=== PATIENT | female | born 1960 | race Hispanic/Latino ===

== ENCOUNTER → 2017-11-01 | Outpatient (CLI) | payer OTHER | LOC: RAH 13:22 | PROVIDERS: ATTEND Internal Medicine | DX: R10.811 Right upper quadrant abdominal tenderness (principal) | CPT/HCPCS: 76700 ==

== ENCOUNTER → 2023-11-09 | Outpatient (CLI) | payer OTHER | END | disposition home or self-care (01) | LOC: RAH 11:16 | PROVIDERS: ATTEND Internal Medicine | DX: M47.22 Other spondylosis with radiculopathy, cervical region (principal); K80.50 Calculus of bile duct without cholangitis or cholecystitis without obstruction; M41.84 Other forms of scoliosis, thoracic region; M47.814 Spondylosis without myelopathy or radiculopathy, thoracic region | CPT/HCPCS: 72040; 72070 ==

== ENCOUNTER 2024-01-05 06:58 | Day surgery (SDC) | payer OTHER ==
[~2024-01-05] VITALS: Ht 144.8 cm; Wt 43.1 kg
[2024-01-05] VITALS (19 sets, daily range): BP systolic 114–194; BP diastolic 68–94; PULSE 65–81; RESP 13–19
[2024-01-05] MEDS: 0.9%NACL 1000ML 1,000 ML IV ONE (06:18)
[2024-01-05] MEDS ORDERED: HYDR12.54 PO (07:59)
[2024-01-05] MEDS ORDERED: FAMO20TA8 PO (07:59)
[2024-01-05] MEDS ORDERED: CETI10TA57 PO (07:59)
[2024-01-05] MEDS ORDERED: METF-444 PO (07:59)
[2024-01-05] MEDS ORDERED: LISI40TA9 PO (07:59)
[2024-01-05] MEDS ORDERED: TOUJEO SQ (07:59)
[2024-01-05] MEDS ORDERED: ESTR0.5T2 PO (07:59)
[2024-01-05] MEDS ORDERED: ROSU20TA73 PO (07:59)
[2024-01-05] MEDS ORDERED: VITAMIN D PO (07:59)
[2024-01-05] MEDS ORDERED: PROPOFOL 10 MG/ML 20ML VIAL IV ONE (08:52)
[2024-01-05] MEDS ORDERED: HYDRALAZINE 20MG/ML VIAL ONE (10:22)
== END 2024-01-05 11:10 | disposition home or self-care (01) ==
LOC: ENDO 06:58 → DAH 06:58 → ENDO 11:10
PROVIDERS: ATTEND Internal Medicine Gastroenterology
DX: R10.13 Epigastric pain (principal); R14.0 Abdominal distension (gaseous); K29.50 Unspecified chronic gastritis without bleeding; K31.84 Gastroparesis; K59.04 Chronic idiopathic constipation; E11.43 Type 2 diabetes mellitus with diabetic autonomic (poly)neuropathy; I10 Essential (primary) hypertension; E78.5 Hyperlipidemia, unspecified; Z79.899 Other long term (current) drug therapy; Z86.010 Personal history of colon polyps; Z79.84 Long term (current) use of oral hypoglycemic drugs
CPT/HCPCS: 82948 ×3; 43239; J7030 ×2; J0360; J2704; A4620; A4215 ×2; A4223; A7002; A4222; A4221; A4663; A4606; J3490

== ENCOUNTER → 2024-01-13 | Outpatient (CLI) | payer OTHER ==
[~2024-01-13] MED LIST: CETI10TA57 PO; ESTR0.5T2 PO; FAMO20TA8 PO; HYDR12.54 PO; LISI40TA9 PO; METF-444 PO; ROSU20TA73 PO; TOUJEO SQ; VITAMIN D PO
== END | disposition home or self-care (01) ==
LOC: RAH 07:15
PROVIDERS: ATTEND Internal Medicine Gastroenterology
DX: K31.84 Gastroparesis (principal)
CPT/HCPCS: 78264; A9541

== ENCOUNTER 2025-06-11 08:35 | Inpatient (IN) | payer OTHER ==
[~2025-06-11] VITALS: Ht 147.3 cm; Wt 45.4 kg
[~2025-06-11 08:35] MED LIST changes: +LISI40TA15 PO; -LISI40TA9 PO; -ROSU20TA73 PO; +ROSU20TA98 PO
--- NOTE | 2025-06-11 08:41 | ERN ---
General Chief Complaint: Other Problems Stated Complaint: PNEUMONIA Time Seen by MD: 08:37 History of Present Illness Initial Comments 64-year-old female presents for cough and kidney dysfunction. Patient has a history of diabetes. About five days ago she developed cough. She went to [facility] and was diagnosed with a pneumonia. She was receiving antibiotics. She was told that her kidneys are not functioning appropriately, and that she may need dialysis. She left [facility] this morning and came straight here because [facility] is not in her insurance network. PCP is Dr. Nicole. She denies any fevers, urinary symptoms, or pains. She reports feeling weak and having a cough. Allergies: Coded Allergies: No Known Drug Allergies (Unverified Allergy, Unknown, 01/05/24) Home Meds Reported Medications [Toujeo ] No Conflict Check, 30 UNITS SQ AM 01/05/24 Estradiol (Estradiol) 0.5 Mg Tablet, 0.5 MG PO AM, TAB 01/05/24 Famotidine (Famotidine) 20 Mg Tablet, 20 MG PO BID, TAB 01/05/24 Rosuvastatin Calcium (Rosuvastatin Calcium) 20 Mg Tablet, 20 MG PO AM, TAB 01/05/24 Hydrochlorothiazide (Hydrochlorothiazide) 12.5 Mg Tablet, 12.5 MG PO AM, TAB 01/05/24 [Vitamin D] No Conflict Check, 33710 UNIT PO QWEEK 01/05/24 Lisinopril (Lisinopril) 40 Mg Tablet, 40 MG PO AM, TAB 01/05/24 Metformin HCl (Metformin HCl) 500 Mg Tablet, 500 MG PO BID, TAB 01/05/24 Cetirizine HCl (Cetirizine HCl) 10 Mg Tablet, 10 MG PO HS, TAB 01/05/24 ROS Dictation CONSTITUTIONAL: No chills, no fever, no weakness, no diaphoresis, no malaise. HEAD/FACE: No signs of trauma. EENT: No eye pain, no blurred vision, no tearing, no double vision, no ear pain, no ear discharge, no nose pain, no nasal congestion, no throat pain, no throat swelling, no mouth pain. RESPIRATORY: Cough and congestion CARDIOVASCULAR: No chest pain, no edema, no palpitations, no syncope. GASTROINTESTINAL/ABDOMINAL: No abdominal pain, no constipation, no diarrhea, no nausea, no vomiting. GENITOURINARY: No abnormal discharge, no dysuria, no frequent urination, no hematuria. No complaints of pain in the genitals. MUSCULOSKELETAL: No back pain, no gout, no joint pain, no joint swelling, no muscle pain, no muscle stiffness, no neck pain. INTEGUMENTARY: No change in color, no change in hair/nails, no dryness, no lesion, no lumps, no rash. NEUROLOGICAL/PSYCH: No anxiety, not depressed, no emotional problem, no headache, no numbness, no pre-existing deficit, no history of seizures, no tremors, no weakness. HEMATOLOGIC/LYMPHATIC: Not anemic, no history of blood clots, no apparent bleeding, no bruising, glands not swollen. All Systems Negative, Except as Noted. Physical Exam Physical Exam Dictation VITAL SIGNS: Reviewed. GENERAL APPEARANCE: Alert, oriented x3, no acute distress. HEAD AND FACE: Non-traumatic. EYES: PERRL, pink conjunctivas, eyelid no trauma, anterior chamber clear. EARS: Pinnas intact and no signs of trauma or erythema. Ear canals clear and no discharge. TMs no erythema. NOSE: No discharge, no bleeding. OROPHARYNX: Mouth normal, teeth no caries, tongue pink. Pharynx clear, no erythema. Tonsils no exudates, no abscesses noted. Mucous membrane moist. NECK: Supple, non-tender, no thyromegaly, no masses, no JVD, no bruits. BREAST: Deferred. CHEST: No tenderness, no crepitus, no paradoxical movement, no retractions. LUNGS: Clear, well-ventilated, symmetric, no rales, no wheezing, no rhonchi, no stridor, good breath sounds bilaterally. HEART: Regular rate, regular rhythm, no murmur, no gallops. VASCULAR: No peripheral edema. ABDOMEN: Soft, positive bowel sounds, nondistended, no guarding, nontender, no rebound, no masses no hepatomegaly, no splenomegaly, no Parson's sign, no hernias. RECTAL: Deferred. GENITAL: Deferred. NEUROLOGICAL: Normal speech, gross motor function intact, gross sensory function intact. MUSCULOSKELETAL: Neck nontender, full range of motion, back nontender, full range of motion. EXTREMITIES: Nontender, full range of motion. SKIN: Color pink, dry, no turgor, no rash, no lacerations, no abrasions, no contusions. LYMPHATICS: Deferred. Results Laboratory and Microbiology Lab and Micro Result Laboratory Tests Test 06/11/25 08:48 White Blood Count 9.9 K/uL (4.8-10.8) Red Blood Count 3.13 MIL/uL (4.00-5.50) L Hemoglobin 8.3 g/dL (12.0-16.0) L Hematocrit 25.6 % (36-48) L Mean Corpuscular Volume 81.8 fL (79-99) Mean Corpuscular Hemoglobin 26.5 pg (27.0-33.0) L Mean Corpuscular Hemoglobin Concent 32.4 g/dL (32.0-36.0) Red Cell Distribution Width 16.1 % (11.0-15.5) H Platelet Count 471 K/uL (130-400) H Mean Platelet Volume 10.4 fL (7.5-10.5) Immature Granulocyte % (Auto) 0.5 % (0-1) Neutrophils (%) (Auto) 78.3 % (40.0-77.0) H Lymphocytes (%) (Auto) 13.6 % (21.0-51.0) L Monocytes (%) (Auto) 4.2 % (3.0-13.0) Eosinophils (%) (Auto) 2.9 % (0.0-8.0) Basophils (%) (Auto) 0.5 % (0.0-5.0) Neutrophils # (Auto) 7.8 K/uL (1.8-7.7) H Lymphocytes # (Auto) 1.4 K/uL (1.0-4.8) Monocytes # (Auto) 0.4 K/uL (0.1-1.0) Eosinophils # (Auto) 0.29 K/uL (0.00-0.70) Basophils # (Auto) 0.05 K/uL (0.00-0.20) Absolute Immature Granulocyte (auto 0.05 K/uL (0-1) Nucleated Red Blood Cells 0.0 % (0.0-0.19) Sodium Level 135 mmol/L (136-145) L Potassium Level 4.9 mmol/L (3.5-5.1) Chloride Level 99 mmol/L (101-111) L Carbon Dioxide Level 16 mmol/L (21-32) L Blood Urea Nitrogen 100 mg/dL (7-18) *H Creatinine 15.6 mg/dL (0.5-1.0) *H Glomerular Filtration Rate Calc 2 mL/min (>90) Random Glucose 215 mg/dL (70-105) H Lactic Acid Level 1.0 mmol/L (0.8-2.5) Total Calcium 7.6 mg/dL (8.5-10.1) L Total Creatine Kinase 244 U/L (21-232) #H Troponin I High Sensitivity 152.9 ng/L (4-50) *H Procalcitonin 0.29 ng/mL (0.05-0.5) MDM CC: pneumonia, cough, kidney disease Historian: Patient Comorbidities: Hypertension, recent admission Limitations by social determinants of health: None Differential diagnosis: Kidney disease, pneumonia, DAI, electrolyte abnormality, arrhythmia, other Vital signs: Stable, remained stable in the ER EKG: Sinus tachycardia, rate 101, normal axis, good R-wave progression. No ST wave changes noted. No arrhythmia. Independently interpreted by me. Labs show no leukocytosis. Normocytic anemia hemoglobin of 8.3 platelets stable. Chemistry shows carbon dioxide of 16 BUN of 100 creatinine of 15.6. On external chart review patient has not had labs in about 10 years and this appears to be new. Lactic acid is stable. The troponin is elevated 152, likely NSTEMI not related to ACS likely due to the kidney disease. Case discussed with the hospitalist Dr. Sung to admit the patient for nephrology consultation. Patient agrees. ED Course Orders Procedure Category Date Status Time Cardiac Panel LAB 06/11/25 Complete 08:38 Cbc With Differential LAB 06/11/25 Complete 08:38 Basic Metabolic Panel LAB 06/11/25 Complete 08:38 Urinalysis Profile LAB 06/11/25 Logged 08:38 Chest 1vw RAD 06/11/25 Taken 08:38 Lactic Acid LAB 06/11/25 Complete 08:38 Procalcitonin LAB 06/11/25 Complete 08:38 12 Lead Ekg Tracing- EKG 06/11/25 Logged Technical 08:38 Admit Orders ADM 06/11/25 Transmitted 10:03 Renal Nondialysis Diet DIET 06/11/25 Transmitted Lunch Blood Sugars Achs CPOE 06/11/25 Transmitted 10:03 Ceftriaxone 1g Vial PHA 06/11/25 In Process (Rocephine 1g Inj) 10:30 *Nursing CPOE 06/11/25 Transmitted Communication: 10:03 Nephrology Consult CONPHYSVC 06/11/25 Transmitted 10:03 Initiate MELISSA 06/11/25 In Process Hyperglycemia Protoco 10:03 Insulin Lispro 100 PHA 06/11/25 In Process Unit/Ml 3ml (Humalog 11:30 Current Medications Medications (Trade) Dose Ordered Sig/Amy Route PRN Reason Start Time Stop Time Status Last Admin Dose Admin Ceftriaxone Sodium (ROCEphine 1G INJ) 1 gm Q24H IVPB 06/11/25 10:30 06/21/25 10:29 Insulin Human Lispro (HumaLOG LISpro 100 UNIT/ML 3ML) INSULIN SLIDING SCAL... ACHS SQ 06/11/25 11:30 07/11/25 11:29 Vital Signs Date Time Temp Pulse Resp B/P (MAP) Pulse Ox O2 Delivery O2 Flow Rate FiO2 06/11/25 08:37 97.9 98 16 138/75 97 Room Air 0 DX & DISP Disposition: Inpatient (Dr Sung) Departure Impression: Primary Impression: Acute renal failure Additional Impressions: Normocytic anemia, Community acquired pneumonia Condition: Stable Referrals: KANIKA SUNG MD (PCP) ESTHELA AMADOR DO Jun 11, 2025 08:41
[2025-06-11 08:55] LABS: IMMATURE GRANULOCYTE ABSOLUTE 0.05 K/uL (0-1); NUCLEATED RED BLOOD CELLS 0.0 % (0.0-0.19); PLATELET COUNT (AUTO) 471 K/uL (130-400); RED BLOOD CELL COUNT(AUTO) 3.13 MIL/uL (4.00-5.50); RED CELL DISTRIBUTION WIDTH 16.1 % (11.0-15.5); WHITE BLOOD COUNT (AUTO) 9.9 K/uL (4.8-10.8)
[2025-06-11 09:11] LABS: CREATINE KINASE, TOTAL 244.0 U/L (21-232); GLOMERULAR FILTR. RATE CALC 2.0 mL/min (>90); GLUCOSE,RANDOM 215.0 mg/dL (70-105); SODIUM SERUM 135.0 mmol/L (136-145)
[2025-06-11 09:14] LABS: CREATININE 15.6 mg/dL (0.5-1.0); UREA NITROGEN, BLOOD 100.0 mg/dL (7-18)
--- NOTE | 2025-06-11 10:19 | EKG ---
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 : 1960 Requested By: ESTHELA AMADOR Order Number: [id number] Reading MD: Samantha Torres Measurements Intervals [place] Rate: 101 P: 63 MA: 131 QRS: 30 QRSD: 75 T: 75 QT: 378 QTc: 490 Interpretive Statements Sinus tachycardia Low voltage, extremity leads Consider left ventricular hypertrophy Anterior Q waves, possibly due to LVH Compared to ECG 09/17/2016 01:47:15 Low QRS voltage now present Left ventricular hypertrophy now present Q waves now present Sinus rhythm no longer present Ventricular premature complex(es) no longer present Myocardial infarct finding no longer present Electronically Signed On 06-11-2025 12:29:51 CDT by Samantha Torres Please click the below link to view image of tracing.
--- NOTE | 2025-06-11 10:50 | NUR ---
PT MOVED FROM LOBBY INTO ROOM ER 11 ASSUMED CARE AT THIS TIME
--- NOTE | 2025-06-11 11:18 | HMCIMG ---
EXAM: CR Chest, 1 View. CLINICAL HISTORY: dizziness COMPARISON: None provided. FINDINGS: There is multifocal airspace disease within the bilateral lower lobes, and small bilateral effusions. There is no pneumothorax. Heart size is stable. Mild central pulmonary vascular congestion. IMPRESSION: 1. Multifocal airspace disease in bilateral lower lobes, concerning for pneumonia, with small bilateral pleural effusions. 2. Mild central pulmonary vascular congestion. /[place]
[2025-06-11] MEDS ORDERED: AMLO-257 PO (12:36)
[2025-06-11] MEDS ORDERED: INSU3INS3 SQ (12:38)
--- NOTE | 2025-06-11 13:30 | NUR ---
NEPHRO CONSULT DR PIEDRA BEDSIDE. NEW ORDERS RECIEVED
--- NOTE | 2025-06-11 14:23 | NUR ---
DR SUNG CALLED FOR H&P AT THIS TIME
--- NOTE | 2025-06-11 14:35 | CONS ---
NEPHROLOGY CONSULTATION NOTE Date/Time Patient Seen: Jun 11, 2025 [id number] Reason for Consultation: Renal Failure HISTORY OF PRESENT ILLNESS: This is a 64-year-old female kidney disease, diabetes mellitus type, and hypertension She presents to the emergency room with complaints of cough and kidney dysfunction. She went to [facility] and was diagnosed with a pneumonia. She was receiving antibiotics. She was told that her kidneys are not functioning appropriately, and that she may need dialysis. We are consulted for renal failure Renal function remains elevated Electrolytes are stable. Imaging studies were noted She was seen in the emergency room, continues to complain of cough Family at the bedside Prognosis remains guarded REVIEW OF SYSTEMS: GENERAL: Positive for cough NEUROLOGIC: Negative for any blurry vision, blind spots, double vision, facial asymmetry, dysphagia, dysarthria, hemiparesis, hemisensory deficits, vertigo, ataxia. HEENT: Negative for any head trauma, neck trauma, neck stiffness, photophobia, phonophobia, sinusitis, rhinitis. CARDIAC: Negative for any chest pain, dyspnea on exertion, paroxysmal nocturnal dyspnea, peripheral edema. PULMONARY: Negative for any shortness of breath, wheezing, COPD, or TB exposure. GASTROINTESTINAL: Negative for any abdominal pain, nausea, vomiting, bright red blood per rectum, melena. GENITOURINARY: Negative for any dysuria, hematuria, incontinence. INTEGUMENTARY: Negative for any rashes, cuts, insect bites. RHEUMATOLOGIC: Negative for any joint pains, photosensitive rashes, history of vasculitis or kidney problems. HEMATOLOGIC: Negative for any abnormal bruising, frequent infections or bleeding. PAST MEDICAL HISTORY: Diabetes mellitus type II Hypertension PAST SURGICAL HISTORY: [ ] PAST SOCIAL HISTORY: Denies use of alcohol, tobacco or illicit drugs FAMILY HISTORY: Noncontributory PHYSICAL EXAM: GENERAL: Alert and oriented x 3. No acute distress. Well-nourished. EYES: EOMI. Anicteric. HENT: Moist mucous membranes. No scleral icterus. No cervical lymphadenopathy. LUNGS: Clear to auscultation bilaterally. No accessory muscle use. CARDIOVASCULAR: Regular rate and rhythm. No murmur. No JVD. ABDOMEN: Soft, non-tender and non-distended. No palpable masses. EXTREMITIES: No edema. Non-tender. SKIN: No rashes or lesions. Warm. NEUROLOGIC: No focal neurological deficits. CN II-XII grossly intact, but not individually tested. PSYCHIATRIC: Cooperative. Appropriate mood and affect. MEDICATIONS: [ ] Current Medications Medications (Trade) Dose Ordered Sig/Amy Route PRN Reason Start Time Stop Time Status Last Admin Dose Admin Ceftriaxone Sodium (ROCEphine 1G INJ) 1 gm Q24H IVPB 06/11/25 10:30 06/21/25 10:29 06/11/25 11:40 1 GM Insulin Human Lispro (HumaLOG LISpro 100 UNIT/ML 3ML) INSULIN SLIDING SCAL... ACHS SQ 06/11/25 11:30 07/11/25 11:29 06/11/25 12:00 8 UNIT Vital Signs (last 8hr) Date Time Temp Pulse Resp B/P (MAP) Pulse Ox O2 Delivery O2 Flow Rate FiO2 06/11/25 12:00 98.1 95 12 157/79 97 Room Air* 0 21 06/11/25 08:37 97.9 98 16 138/75 97 Room Air 0 DIAGNOSTICS / RADIOLOGY: [address] [address] IMAGING REPORT Signed PATIENT: JUAN R ROGERS MR#: [id number] : 1960 SEX: F AGE: 64 LOCATION: [facility] ORDER 9 STATUS: [facility] REPORT#: [id number] SERVICE 7 REASON: dizziness ORDERING PHYSICIAN: ESTHELA AMADOR DO PROCEDURE: CXR1VW - CHEST 1VW EXAM: CR Chest, 1 View. CLINICAL HISTORY: dizziness COMPARISON: None provided. FINDINGS: There is multifocal airspace disease within the bilateral lower lobes, and small bilateral effusions. There is no pneumothorax. Heart size is stable. Mild central pulmonary vascular congestion. IMPRESSION: 1. Multifocal airspace disease in bilateral lower lobes, concerning for pneumonia, with small bilateral pleural effusions. 2. Mild central pulmonary vascular congestion. /[place] DICTATED BY: CASS AGUILAR Jr., MD DATE: 06/11/25 1218 ELECTRONICALLY SIGNED BY: CASS AGUILAR Jr., MD DATE: 06/11/25 1218 LABORATORY: [ ] Hematology Labs: Test 06/11/25 08:48 Range/Units White Blood Count 9.9 4.8-10.8 K/uL Red Blood Count 3.13 L 4.00-5.50 MIL/uL Hemoglobin 8.3 L 12.0-16.0 g/dL Hematocrit 25.6 L 36-48 % Mean Corpuscular Volume 81.8 79-99 fL Mean Corpuscular Hemoglobin 26.5 L 27.0-33.0 pg Mean Corpuscular Hemoglobin Concent 32.4 32.0-36.0 g/dL Red Cell Distribution Width 16.1 H 11.0-15.5 % Platelet Count 471 H 130-400 K/uL Mean Platelet Volume 10.4 7.5-10.5 fL Immature Granulocyte % (Auto) 0.5 0-1 % Neutrophils (%) (Auto) 78.3 H 40.0-77.0 % Lymphocytes (%) (Auto) 13.6 L 21.0-51.0 % Monocytes (%) (Auto) 4.2 3.0-13.0 % Eosinophils (%) (Auto) 2.9 0.0-8.0 % Basophils (%) (Auto) 0.5 0.0-5.0 % Neutrophils # (Auto) 7.8 H 1.8-7.7 K/uL Lymphocytes # (Auto) 1.4 1.0-4.8 K/uL Monocytes # (Auto) 0.4 0.1-1.0 K/uL Eosinophils # (Auto) 0.29 0.00-0.70 K/uL Basophils # (Auto) 0.05 0.00-0.20 K/uL Absolute Immature Granulocyte (auto 0.05 0-1 K/uL Nucleated Red Blood Cells 0.0 0.0-0.19 % Chemistry Labs: Test 06/11/25 11:47 06/11/25 08:48 Range/Units Whole Blood Glucose 240 H 70-110 MG/DL Sodium Level 135 L 136-145 mmol/L Potassium Level 4.9 3.5-5.1 mmol/L Chloride Level 99 L 101-111 mmol/L Carbon Dioxide Level 16 L 21-32 mmol/L Blood Urea Nitrogen 100 *H 7-18 mg/dL Creatinine 15.6 *H 0.5-1.0 mg/dL Glomerular Filtration Rate Calc 2 >90 mL/min Random Glucose 215 H 70-105 mg/dL Lactic Acid Level 1.0 0.8-2.5 mmol/L Total Calcium 7.6 L 8.5-10.1 mg/dL Total Creatine Kinase 244 #H 21-232 U/L Troponin I High Sensitivity 152.9 *H 4-50 ng/L Procalcitonin 0.29 0.05-0.5 ng/mL ASSESSMENT: Acute on chronic renal failure Anemia Community-acquired pneumonia Hypertension Diabetes mellitus type PLAN: Labs, diagnostic, radiologic exams reviewed and interpreted by myself and supervising physician. We have reviewed external records in detail From a renal standpoint, the function continues to decline and electrolytes remain unbalanced. The patient has remained hemodynamically stable and therefore we will recommend dialysis intervention to correct electrolytes as well as BUN and Creatinine. Risk and complications of renal replacement therapy, vascular access, and modalities were explained in great detail to the patient. Patient voices understanding and wishes to proceed. PermCath replaced by IR, dialysis to follow Require close monitoring of renal function and electrolytes Order CBC, CMP, uric acid, TSH and electrolytes in am Renal diabetic diet BiPAP as necessary, for respiratory distress Monitor blood pressure adjust medication doses as needed Avoid hypotensive episodes May use Dilaudid 0.5 mg IV every 6 hours as needed for severe pain Monitor blood sugars Strict intake, output, and daily weight should be monitored Please renally adjust medications Avoid nephrotoxic and nonsteroidal drugs Avoid contrast if possible Will continue to monitor renal function, anemia, electrolytes Treatment plan discussed with patient Questions were answered We have discussed with the other team physicians in detail about the care plan We will continue to monitor the patient closely Thank you for allowing us to participate in the care of this patient ATTESTATION BY PHYSICIAN I have seen and examined the patient. I reviewed the documentation, medical decision making, and treatment plan as noted by the mid-level provider above. I agree with the findings and plan of care. ROSAS PIEDRA MD, [facility] Jun 11, 2025 14:35
[2025-06-11 14:44] LABS: INR 1.12 (0.85-1.15)
--- NOTE | 2025-06-11 14:59 | HP ---
HISTORY AND PHYSICAL NOTE DATE OF CONSULTATION: 06/11/25 HISTORY OF PRESENT ILLNESS: 64-year-old female presents for cough and kidney dysfunction. Patient has a history of diabetes. About five days ago she developed cough. She went to [facility] and was diagnosed with a pneumonia. She was receiving antibiotics. She was told that her kidneys are not functioning appropriately, and that she may need dialysis. She left [facility] this morning and came straight here because [facility] is not in her insurance network. . She denies any fevers, urinary symptoms, or pains. She reports feeling weak and having a cough. Allergies: Coded Allergies: No Known Drug Allergies (Unverified Allergy, Unknown, 01/05/24) Home Meds Reported Medications [Toujeo ] No Conflict Check, 30 UNITS SQ AM 01/05/24 Estradiol (Estradiol) 0.5 Mg Tablet, 0.5 MG PO AM, TAB 01/05/24 Famotidine (Famotidine) 20 Mg Tablet, 20 MG PO BID, TAB 01/05/24 Rosuvastatin Calcium (Rosuvastatin Calcium) 20 Mg Tablet, 20 MG PO AM, TAB 01/05/24 Hydrochlorothiazide (Hydrochlorothiazide) 12.5 Mg Tablet, 12.5 MG PO AM, TAB 01/05/24 [Vitamin D] No Conflict Check, 86725 UNIT PO QWEEK 01/05/24 Lisinopril (Lisinopril) 40 Mg Tablet, 40 MG PO AM, TAB 01/05/24 Metformin HCl (Metformin HCl) 500 Mg Tablet, 500 MG PO BID, TAB 01/05/24 Cetirizine HCl (Cetirizine HCl) 10 Mg Tablet, 10 MG PO HS, TAB 01/05/24 Past History Review of Systems ROS Dictation CONSTITUTIONAL: No chills, no fever, no weakness, no diaphoresis, no malaise. HEAD/FACE: No signs of trauma. EENT: No eye pain, no blurred vision, no tearing, no double vision, no ear pain, no ear discharge, no nose pain, no nasal congestion, no throat pain, no throat swelling, no mouth pain. RESPIRATORY: Cough and congestion CARDIOVASCULAR: No chest pain, no edema, no palpitations, no syncope. GASTROINTESTINAL/ABDOMINAL: No abdominal pain, no constipation, no diarrhea, no nausea, no vomiting. GENITOURINARY: No abnormal discharge, no dysuria, no frequent urination, no hematuria. No complaints of pain in the genitals. MUSCULOSKELETAL: No back pain, no gout, no joint pain, no joint swelling, no muscle pain, no muscle stiffness, no neck pain. INTEGUMENTARY: No change in color, no change in hair/nails, no dryness, no lesion, no lumps, no rash. NEUROLOGICAL/PSYCH: No anxiety, not depressed, no emotional problem, no headache, no numbness, no pre-existing deficit, no history of seizures, no tremors, no weakness. HEMATOLOGIC/LYMPHATIC: Not anemic, no history of blood clots, no apparent bleeding, no bruising, glands not swollen. All Systems Negative, Except as Noted. ALLERGIES: Coded Allergies: No Known Drug Allergies (Unverified Allergy, Unknown, 01/05/24) HOME MEDS: Reported Medications Insulin Glargine,Hum.rec.anlog (Lantus Solostar) 100 Unit/Ml (3 Ml) Insuln.pen, 70 UNIT SQ DAILY, SYRINGE 06/11/25 Amlodipine Besylate (Amlodipine Besylate) 5 Mg Tablet, 5 MG PO DAILY, TAB 06/11/25 Estradiol (Estradiol) 0.5 Mg Tablet, 0.5 MG PO AM, TAB 01/05/24 Rosuvastatin Calcium (Rosuvastatin Calcium) 20 Mg Tablet, 20 MG PO AM, TAB 01/05/24 Hydrochlorothiazide (Hydrochlorothiazide) 12.5 Mg Tablet, 12.5 MG PO AM, TAB 01/05/24 [Vitamin D] No Conflict Check, 65982 UNIT PO QWEEK 01/05/24 Lisinopril (Lisinopril) 40 Mg Tablet, 40 MG PO AM, TAB 01/05/24 Metformin HCl (Metformin HCl) 500 Mg Tablet, 500 MG PO BID, TAB 01/05/24 Discontinued Reported Medications [Toujeo ] No Conflict Check, 30 UNITS SQ AM 01/05/24 INPATIENT MEDS: Current Medications Medications Dose Ordered Sig/Amy Start Time Stop Time Status Last Admin Ceftriaxone Sodium 1 gm Q24H 06/11/25 10:30 06/21/25 10:29 06/11/25 11:40 Insulin Human Lispro INSULIN SLIDING SCAL... ACHS 06/11/25 11:30 07/11/25 11:29 06/11/25 12:00 VITAL SIGNS Vital Signs Date Time Temp Pulse Resp B/P (MAP) Pulse Ox O2 Delivery O2 Flow Rate FiO2 06/11/25 12:00 98.1 95 12 157/79 97 Room Air* 0 21 06/11/25 08:37 97.9 98 16 138/75 97 Room Air 0 PHYSICAL EXAM Physical Exam Physical Exam Physical Exam Dictation VITAL SIGNS: Reviewed. GENERAL APPEARANCE: Alert, oriented x3, no acute distress. HEAD AND FACE: Non-traumatic. EYES: PERRL, pink conjunctivas, eyelid no trauma, anterior chamber clear. EARS: Pinnas intact and no signs of trauma or erythema. Ear canals clear and no discharge. TMs no erythema. NOSE: No discharge, no bleeding. OROPHARYNX: Mouth normal, teeth no caries, tongue pink. Pharynx clear, no erythema. Tonsils no exudates, no abscesses noted. Mucous membrane moist. NECK: Supple, non-tender, no thyromegaly, no masses, no JVD, no bruits. BREAST: Deferred. CHEST: No tenderness, no crepitus, no paradoxical movement, no retractions. LUNGS: Clear, well-ventilated, symmetric, no rales, no wheezing, no rhonchi, no stridor, good breath sounds bilaterally. HEART: Regular rate, regular rhythm, no murmur, no gallops. VASCULAR: No peripheral edema. ABDOMEN: Soft, positive bowel sounds, nondistended, no guarding, nontender, no rebound, no masses no hepatomegaly, no splenomegaly, no Parson's sign, no hernias. RECTAL: Deferred. GENITAL: Deferred. NEUROLOGICAL: Normal speech, gross motor function intact, gross sensory function intact. MUSCULOSKELETAL: Neck nontender, full range of motion, back nontender, full range of motion. EXTREMITIES: Nontender, full range of motion. SKIN: Color pink, dry, no turgor, no rash, no lacerations, no abrasions, no contusions. LYMPHATICS: Deferred. LABORATORY RESULTS Laboratory Tests 06/11/25 08:48: White Blood Count 9.9, Red Blood Count 3.13, Hemoglobin 8.3, Hematocrit 25.6, Mean Corpuscular Volume 81.8, Mean Corpuscular Hemoglobin 26.5, Mean Corpuscular Hemoglobin Concent 32.4, Red Cell Distribution Width 16.1, Platelet Count 471, Mean Platelet Volume 10.4, Immature Granulocyte % (Auto) 0.5, Neutrophils (%) (Auto) 78.3, Lymphocytes (%) (Auto) 13.6, Monocytes (%) (Auto) 4.2, Eosinophils (%) (Auto) 2.9, Basophils (%) (Auto) 0.5, Neutrophils # (Auto) 7.8, Lymphocytes # (Auto) 1.4, Monocytes # (Auto) 0.4, Eosinophils # (Auto) 0.29, Basophils # (Auto) 0.05, Absolute Immature Granulocyte (auto 0.05, Nucleated Red Blood Cells 0.0, Sodium Level 135, Potassium Level 4.9, Chloride Level 99, Carbon Dioxide Level 16, Blood Urea Nitrogen 100, Creatinine 15.6, Glomerular Filtration Rate Calc 2, Random Glucose 215, Lactic Acid Level 1.0, Total Calcium 7.6, Total Cre atine Kinase 244, Troponin I High Sensitivity 152.9, Procalcitonin 0.29 06/11/25 11:47: Whole Blood Glucose 240 06/11/25 14:23: Potassium Level 4.5, Prothrombin Time 11.7, Prothromb Time International Ratio 1.12, Activated Partial Thromboplast Time 33.3 PROBLEM LIST: (1) Acute renal failure ICD Codes: N17.9 - Acute kidney failure, unspecified (2) Normocytic anemia ICD Codes: D64.9 - Anemia, unspecified PLAN admit consult nepgrology sliding scale for diabetes KANIKA SUNG MD Jun 11, 2025 14:59
[2025-06-11 15:30] LABS: ADD UA MICROSCOPIC YES; APPEARANCE,URINE CLOUDY (CLEAR); GLUCOSE, URINE (UA) 500 mg/dL (NEGATIVE); LEUKOCYTE ESTERASE ,URINE NEGATIVE Leu/uL (NEGATIVE); NITRATE,URINE NEGATIVE (NEGATIVE); OCCULT BLOOD,URINE MODERATE (NEGATIVE)
[2025-06-11 15:33] LABS: SQUAMOUS EPITHELIAL CELL,UR FEW /HPF (0-2)
--- NOTE | 2025-06-11 15:56 | NUR ---
PERMACATH CONSENT SIGNED HEMODIALYSIS CONSENT SIGNED
--- NOTE | 2025-06-11 16:16 | NUR ---
DCP:HOME Pt currently lives at home with her [facility] [phone]. pt does not have any DME, home health, or provider services. pt states that she is able to complete ADLs independently. PCP is Dr. Dominguez and uses [facility] for any RX needs. At PR pt will want to go home and family can assist with transportation. Addendum: 06/11/25 at 1617 by SETH MEADOWS SS Amended: Links added.
[2025-06-11 23:25] VITALS: BP 149/79; PULSE 107; RESP 18; TEMP 97.9
[2025-06-11 23:35] VITALS: O2SAT 98
--- NOTE | 2025-06-11 23:45 | NUR ---
ADMISSION NOTE PATIENT TRANSFERRED FROM ER. PATIENT ALERT, ORIENTED, AND ABLE TO MAKE NEEDS KNOWN. MEDICATIONS CONTINUED AT THIS TIME.
[2025-06-12] VITALS (26 sets, daily range): BP systolic 130–175; BP diastolic 66–88; PULSE 86–111; RESP 12–19; TEMP 97.8–98.9; O2SAT 97
[2025-06-12 04:57] LABS: IMMATURE GRANULOCYTE ABSOLUTE 0.08 K/uL (0-1); NUCLEATED RED BLOOD CELLS 0.0 % (0.0-0.19); PLATELET COUNT (AUTO) 475 K/uL (130-400); RED BLOOD CELL COUNT(AUTO) 3.30 MIL/uL (4.00-5.50); RED CELL DISTRIBUTION WIDTH 16.0 % (11.0-15.5); WHITE BLOOD COUNT (AUTO) 9.0 K/uL (4.8-10.8)
[2025-06-12 05:26] LABS: ASPARTATE AMINOTRANSFERASE 17.0 U/L (10-37); GLOMERULAR FILTR. RATE CALC 2.0 mL/min (>90); GLUCOSE,RANDOM 115.0 mg/dL (70-105); PHOSPHORUS 9.3 mg/dL (2.5-4.9); SODIUM SERUM 134.0 mmol/L (136-145); TOTAL PROTEIN, SERUM 6.2 g/dL (6.0-8.3)
[2025-06-12 05:29] LABS: % IRON SATURATION 25.2 % (22-44); IRON, SERUM 61.0 mcg/dL (50-170)
[2025-06-12 05:41] LABS: CREATININE 15.5 mg/dL (0.5-1.0); UREA NITROGEN, BLOOD 100.0 mg/dL (7-18)
[2025-06-12] MEDS ORDERED: HEParin-NS 1,000 UNIT/500 ML 500 ML IV ONE (07:06)
[2025-06-12] MEDS ORDERED: LIDOCAINE HCL 1% MDV 50ML VIAL ONE (07:06)
[2025-06-12] MEDS ORDERED: MIDAZOLAM HCL 1 MG/ML 2ML VIAL ONE (07:38)
[2025-06-12] MEDS: ESTRADIOL 0.5 MG TABLET PO SCH (07:57)
[2025-06-12] MEDS: amLODIPine 5 MG TAB PO SCH (07:58)
[2025-06-12] MEDS ORDERED: LISINOPRIL 40 MG TABLET PO SCH (09:00)
--- NOTE | 2025-06-12 09:27 | CCATH ---
STUDY: Percutaneous ultrasound and fluoroscopy guide placement of a PermCath in right internal jugular vein. PROCEDURE IN DETAIL: The patient was given 2 mg of Versed and 50 mcg of fentanyl. After sterile prep of the right neck and upper thorax, under ultrasound guidance, the right internal jugular vein was localized at the base of the neck. This was accessed with micropuncture needle and wire, which was placed. A small incision was made at the access site. This was exchanged to a conventional angiographic wire. A tunneling was made from the right mid clavicular region to the access site with lidocaine after a small incision with a trocar, the DuraMax chronic hemodialysis catheter was placed. A cuff to the tip was 19 cm. Through the angiographic wire, a peel-away sheath was introduced and through this, the DuraMax catheter was introduced into the superior vena cava. This was deployed with peeling the peel-away sheath. The catheter was anchored with 3-0 silk suture and flushed with heparinized saline. Percutaneous placement of an ultrasound fluoroscopy guided hemodialysis catheter, which appears to be in satisfactory position. This can be accessed for hemodialysis. TID: [id number] RECEIPT: [id number]
[2025-06-12] MEDS ORDERED: COMPOUND IV MISC 1 EACH IVSOLN MISC PRN (09:30)
[2025-06-12] MEDS ORDERED: COMPOUND IV REFRIGERATED 1 EACH IVSOLN MISC PRN (09:30)
[2025-06-12] MEDS: 0.9%NACL 1000ML 1,000 ML IV SCH (15:30)
[2025-06-12] MEDS ORDERED: 0.9% NACL 250ML 250 ML IV SCH (15:30)
[2025-06-12 16:13] LABS: CREATININE 1.9 mg/dL (0.5-1.0); GLOMERULAR FILTR. RATE CALC 29.0 mL/min (>90); LDL DIRECT 105.0 mg/dL (0-99); UREA NITROGEN, BLOOD 7.0 mg/dL (7-18)
[2025-06-12] MEDS: EPOETIN ALFA-EPBX (NON-ESRD) 10,000 UNIT/ML VIAL SQ SCH (17:03)
[2025-06-12 17:29] LABS: HIV 1&2 ANTIBODY Non-Reactive (Negative)
--- NOTE | 2025-06-12 18:56 | PN ---
PROGRESS NOTE PROGRESS NOTE DATE OF PROGRESS NOTE: 06/12/25 SUBJECTIVE: pending dialysis VITAL SIGNS Vital Signs Date Time Temp Pulse Resp B/P (MAP) Pulse Ox O2 Delivery O2 Flow Rate FiO2 06/12/25 16:50 99.0 100 16 173/82 97 Room Air 06/12/25 07:50 0 21 PHYSICAL EXAM: Physical Exam Physical Exam Physical Exam Dictation VITAL SIGNS: Reviewed. GENERAL APPEARANCE: Alert, oriented x3, no acute distress. HEAD AND FACE: Non-traumatic. EYES: PERRL, pink conjunctivas, eyelid no trauma, anterior chamber clear. EARS: Pinnas intact and no signs of trauma or erythema. Ear canals clear and no discharge. TMs no erythema. NOSE: No discharge, no bleeding. OROPHARYNX: Mouth normal, teeth no caries, tongue pink. Pharynx clear, no erythema. Tonsils no exudates, no abscesses noted. Mucous membrane moist. NECK: Supple, non-tender, no thyromegaly, no masses, no JVD, no bruits. BREAST: Deferred. CHEST: No tenderness, no crepitus, no paradoxical movement, no retractions. LUNGS: Clear, well-ventilated, symmetric, no rales, no wheezing, no rhonchi, no stridor, good breath sounds bilaterally. HEART: Regular rate, regular rhythm, no murmur, no gallops. VASCULAR: No peripheral edema. ABDOMEN: Soft, positive bowel sounds, nondistended, no guarding, nontender, no rebound, no masses no hepatomegaly, no splenomegaly, no Parson's sign, no hernias. RECTAL: Deferred. GENITAL: Deferred. NEUROLOGICAL: Normal speech, gross motor function intact, gross sensory function intact. MUSCULOSKELETAL: Neck nontender, full range of motion, back nontender, full range of motion. EXTREMITIES: Nontender, full range of motion. SKIN: Color pink, dry, no turgor, no rash, no lacerations, no abrasions, no contusions. LYMPHATICS: Deferred. LABORATORY: Laboratory Result(s) Test 06/11/25 19:37 06/12/25 04:30 06/12/25 06:58 06/12/25 11:12 Whole Blood Glucose 124 MG/DL (70-110) 134 MG/DL (70-110) 146 MG/DL (70-110) White Blood Count 9.0 K/uL (4.8-10.8) Red Blood Count 3.30 MIL/uL (4.00-5.50) Hemoglobin 8.7 g/dL (12.0-16.0) Hematocrit 26.7 % (36-48) Mean Corpuscular Volume 80.9 fL (79-99) Mean Corpuscular Hemoglobin 26.4 pg (27.0-33.0) Mean Corpuscular Hemoglobin Concent 32.6 g/dL (32.0-36.0) Red Cell Distribution Width 16.0 % (11.0-15.5) Platelet Count 475 K/uL (130-400) Mean Platelet Volume 11.1 fL (7.5-10.5) Immature Granulocyte % (Auto) 0.9 % (0-1) Neutrophils (%) (Auto) 63.2 % (40.0-77.0) Lymphocytes (%) (Auto) 24.5 % (21.0-51.0) Monocytes (%) (Auto) 6.9 % (3.0-13.0) Eosinophils (%) (Auto) 3.8 % (0.0-8.0) Basophils (%) (Auto) 0.7 % (0.0-5.0) Neutrophils # (Auto) 5.7 K/uL (1.8-7.7) Lymphocytes # (Auto) 2.2 K/uL (1.0-4.8) Monocytes # (Auto) 0.6 K/uL (0.1-1.0) Eosinophils # (Auto) 0.34 K/uL (0.00-0.70) Basophils # (Auto) 0.06 K/uL (0.00-0.20) Absolute Immature Granulocyte (auto 0.08 K/uL (0-1) Nucleated Red Blood Cells 0.0 % (0.0-0.19) Sodium Level 134 mmol/L (136-145) Potassium Level 4.7 mmol/L (3.5-5.1) Chloride Level 99 mmol/L (101-111) Carbon Dioxide Level 16 mmol/L (21-32) Blood Urea Nitrogen 100 mg/dL (7-18) Creatinine 15.5 mg/dL (0.5-1.0) Glomerular Filtration Rate Calc 2 mL/min (>90) Random Glucose 115 mg/dL (70-105) Total Calcium 7.6 mg/dL (8.5-10.1) Phosphorus Level 9.3 mg/dL (2.5-4.9) Iron Level 61 mcg/dL (50-170) Total Iron Binding Capacity 242 mcg/dL (250-450) Percent Iron Saturation 25.2 % (22-44) Total Bilirubin 0.2 mg/dL (0.2-1.0) Aspartate Amino Transf (AST/SGOT) 17 U/L (10-37) Alanine Aminotransferase (ALT/SGPT) 17 U/L (12-78) Alkaline Phosphatase 77 U/L (50-136) Total Protein 6.2 g/dL (6.0-8.3) Albumin 2.0 g/dL (3.5-5.0) Test 06/12/25 15:17 06/12/25 15:46 Hemoglobin 8.3 g/dL (12.0-16.0) Hematocrit 24.8 % (36-48) Blood Urea Nitrogen 7 mg/dL (7-18) Creatinine 1.9 mg/dL (0.5-1.0) Glomerular Filtration Rate Calc 29 mL/min (>90) Hemoglobin A1c 11.6 % (4.0-6.0) Estimated Average Glucose (eAG) 286 mg/dL (70-126) Ferritin 410 ng/mL (15-150) Albumin 2.0 g/dL (3.5-5.0) Triglycerides Level 396 mg/dL (30-200) Cholesterol Level 225 mg/dL (<200) LDL Cholesterol 105 mg/dL (0-99) HDL Cholesterol 46 mg/dL (35-85) HIV (1&2) Antibody Non-Reactive (Negative) HIV P24 Antigen, Qualitative Non-Reactive (Negative) Whole Blood Glucose 112 MG/DL (70-110) INPATIENT MEDS: Current Medications Medications Dose Ordered Sig/Amy Start Time Stop Time Status Last Admin Ceftriaxone Sodium 1 gm Q24H 06/11/25 10:30 06/21/25 10:29 06/12/25 11:25 Insulin Human Lispro INSULIN SLIDING SCAL... ACHS 06/11/25 11:30 07/11/25 11:29 06/11/25 12:00 Amlodipine Besylate 5 mg DAILY 06/12/25 09:00 07/12/25 08:59 Estradiol 0.5 mg AM 06/12/25 09:00 07/12/25 08:59 Hydrochlorothiazide 12.5 mg DAILY 06/12/25 09:00 07/12/25 08:59 Atorvastatin Calcium 40 mg HS 06/12/25 21:00 07/12/25 20:59 Ergocalciferol 50,000 unit QWEEK 06/18/25 09:00 07/18/25 08:59 Insulin Glargine 70 units HS 06/12/25 21:00 07/12/25 20:59 Iron Sucrose 300 mg/Sodium Chloride 250 ml @ 83 mls/hr ONCE ONCE 06/12/25 21:00 06/13/25 00:00 Epoetin Nate-epbx 10,000 unit QTUTHSA[DIALYSIS] 06/12/25 16:00 07/12/25 15:59 06/12/25 17:03 Sodium Chloride 250 ml @ 0 mls/hr AD 06/12/25 15:30 07/12/25 15:29 Sodium Chloride 1,000 ml @ 0 mls/hr ONCE 06/12/25 15:30 07/12/25 15:29 PROBLEM LIST: (1) Acute renal failure ICD Code: N17.9 - Acute kidney failure, unspecified (2) Normocytic anemia ICD Code: D64.9 - Anemia, unspecified PLAN: admit consult nepgrology sliding scale for diabetes KANIKA SUNG MD Jun 12, 2025 18:56
--- NOTE | 2025-06-12 19:53 | HMCIMG ---
EXAM: XR Chest, 1 View. CLINICAL HISTORY: 64 year old female with first time on dialysis. COMPARISON: XR Chest 06/11/25. FINDINGS: LUNGS: The lungs are not clear. There are consolidations in the lower lobes, suggesting pneumonia. PLEURAL SPACES: There are small bilateral pleural effusions. HEART: The heart size is normal. The right internal jugular central line tip is in the SVC. BONES: No acute osseous abnormality. IMPRESSION: 1. Small bilateral pleural effusions and lower lobe consolidations, suggesting pneumonia. Correlate clinically. Similar to prior XR Chest 06/11/25. 2. Right internal jugular central line tip in the SVC. /Crivitz
[2025-06-12] MEDS ORDERED: GLUCAGON 1MG KIT 1 MG ML IM PRN (21:00)
--- NOTE | 2025-06-12 23:38 | PN ---
FOLLOWUP PROGRESS NOTE SUBJECTIVE: The patient was seen and evaluated on hemodialysis, prescription noted. PHYSICAL EXAMINATION: VITAL SIGNS: Blood pressure is 130/80. CARDIOVASCULAR: Regular. LUNGS: Coarse. IMPRESSION: End-stage renal disease. PLAN: The patient will continue with maximum filtration if blood pressure allows. The patient will be set up for outpatient dialysis. TID: [id number] RECEIPT: [id number]
[2025-06-13] VITALS (18 sets, daily range): BP systolic 113–154; BP diastolic 64–87; PULSE 74–100; RESP 15–18; TEMP 97.4–98.6; O2SAT 93–98
[2025-06-13] MEDS: DEXTROSE 50%-WATER 50 ML DISP.SYRIN IV PRN (05:45)
--- NOTE | 2025-06-13 09:00 | NUR ---
PER , DIALYZE PT TODAY (TX #2) TOMORROW 06/14/25 (TX #3) & THEN KEEP TTS WHILE HOSPITALIZED.
--- NOTE | 2025-06-13 09:30 | NUR ---
PT STARTED HD #2, NOTED PT COMFORTABLE, NO PAIN, BP STABLE. WILL CONTINUE TO MONITOR.
--- NOTE | 2025-06-13 14:26 | NUR ---
Discharge Update: Pending return call from [facility] for instructions on referral for new HD patient. Pending 2nd dialysis session today and labs.
--- NOTE | 2025-06-13 14:48 | PN ---
PROGRESS NOTE PROGRESS NOTE DATE OF PROGRESS NOTE: 06/13/25 SUBJECTIVE: No new complaints VITAL SIGNS Vital Signs Date Time Temp Pulse Resp B/P (MAP) Pulse Ox O2 Delivery O2 Flow Rate FiO2 06/13/25 12:00 97.3 74 17 128/64 98 Room Air 06/12/25 20:00 0 21 PHYSICAL EXAM: Physical Exam Physical Exam Physical Exam Dictation VITAL SIGNS: Reviewed. GENERAL APPEARANCE: Alert, oriented x3, no acute distress. HEAD AND FACE: Non-traumatic. EYES: PERRL, pink conjunctivas, eyelid no trauma, anterior chamber clear. EARS: Pinnas intact and no signs of trauma or erythema. Ear canals clear and no discharge. TMs no erythema. NOSE: No discharge, no bleeding. OROPHARYNX: Mouth normal, teeth no caries, tongue pink. Pharynx clear, no erythema. Tonsils no exudates, no abscesses noted. Mucous membrane moist. NECK: Supple, non-tender, no thyromegaly, no masses, no JVD, no bruits. BREAST: Deferred. CHEST: No tenderness, no crepitus, no paradoxical movement, no retractions. LUNGS: Clear, well-ventilated, symmetric, no rales, no wheezing, no rhonchi, no stridor, good breath sounds bilaterally. HEART: Regular rate, regular rhythm, no murmur, no gallops. VASCULAR: No peripheral edema. ABDOMEN: Soft, positive bowel sounds, nondistended, no guarding, nontender, no rebound, no masses no hepatomegaly, no splenomegaly, no Parson's sign, no hernias. RECTAL: Deferred. GENITAL: Deferred. NEUROLOGICAL: Normal speech, gross motor function intact, gross sensory function intact. MUSCULOSKELETAL: Neck nontender, full range of motion, back nontender, full range of motion. EXTREMITIES: Nontender, full range of motion. SKIN: Color pink, dry, no turgor, no rash, no lacerations, no abrasions, no contusions. LYMPHATICS: Deferred. LABORATORY: Laboratory Result(s) Test 06/12/25 15:17 06/12/25 15:46 06/12/25 19:20 06/13/25 05:40 Hemoglobin 8.3 g/dL (12.0-16.0) Hematocrit 24.8 % (36-48) Blood Urea Nitrogen 7 mg/dL (7-18) Creatinine 1.9 mg/dL (0.5-1.0) Glomerular Filtration Rate Calc 29 mL/min (>90) Hemoglobin A1c 11.6 % (4.0-6.0) Estimated Average Glucose (eAG) 286 mg/dL (70-126) Ferritin 410 ng/mL (15-150) Albumin 2.0 g/dL (3.5-5.0) Triglycerides Level 396 mg/dL (30-200) Cholesterol Level 225 mg/dL (<200) LDL Cholesterol 105 mg/dL (0-99) HDL Cholesterol 46 mg/dL (35-85) Hepatitis B Surface Antigen. Non-Reactive (Nonreactive) HIV (1&2) Antibody Non-Reactive (Negative) HIV P24 Antigen, Qualitative Non-Reactive (Negative) Whole Blood Glucose 112 MG/DL (70-110) 196 MG/DL (70-110) 55 MG/DL (70-110) Test 06/13/25 05:59 06/13/25 11:03 Whole Blood Glucose 150 MG/DL (70-110) 71 MG/DL (70-110) INPATIENT MEDS: Current Medications Medications Dose Ordered Sig/Amy Start Time Stop Time Status Last Admin Ceftriaxone Sodium 1 gm Q24H 06/11/25 10:30 06/21/25 10:29 06/13/25 12:41 Insulin Human Lispro INSULIN SLIDING SCAL... ACHS 06/11/25 11:30 07/11/25 11:29 06/12/25 21:17 Estradiol 0.5 mg AM 06/12/25 09:00 07/12/25 08:59 06/13/25 12:41 Atorvastatin Calcium 40 mg HS 06/12/25 21:00 07/12/25 20:59 06/12/25 21:12 Ergocalciferol 50,000 unit QWEEK 06/18/25 09:00 07/18/25 08:59 Insulin Glargine 70 units HS 06/12/25 21:00 07/12/25 20:59 06/12/25 21:17 Epoetin Nate-epbx 10,000 unit QTUTHSA[DIALYSIS] 06/12/25 16:00 07/12/25 15:59 06/12/25 17:03 Sodium Chloride 250 ml @ 0 mls/hr AD 06/12/25 15:30 07/12/25 15:29 Sodium Chloride 1,000 ml @ 0 mls/hr ONCE 06/12/25 15:30 07/12/25 15:29 06/13/25 11:51 Dextrose 50 ml AD PRN 06/12/25 21:00 07/12/25 20:59 06/13/25 05:45 Glucagon 1 mg AD PRN 06/12/25 21:00 07/12/25 20:59 Iron Sucrose 300 mg/Sodium Chloride 250 ml @ 83 mls/hr ONCE ONCE 06/13/25 21:00 06/14/25 00:00 Lisinopril 20 mg DAILY 06/14/25 09:00 07/14/25 08:59 Heparin Sodium (Porcine) 10,000 unit AD 06/13/25 10:00 07/13/25 09:59 PROBLEM LIST: (1) Acute renal failure ICD Code: N17.9 - Acute kidney failure, unspecified (2) Normocytic anemia ICD Code: D64.9 - Anemia, unspecified PLAN: admit consult nepgrology sliding scale for diabetes KANIKA SUNG MD Jun 13, 2025 14:48
[2025-06-13 16:36] LABS: HEPATITIS B CORE AB TOTAL Non-Reactive (Nonreactive); HEPATITIS B SURFACE ANTIBODY Negative (Reactive)
--- NOTE | 2025-06-13 21:38 | PN ---
FOLLOWUP PROGRESS NOTE SUBJECTIVE: The patient was seen and evaluated on hemodialysis, prescription noted. PHYSICAL EXAMINATION: VITAL SIGNS: Blood pressure is 134/67. CARDIOVASCULAR: Regular. LUNGS: Coarse. IMPRESSION: End-stage renal disease. PLAN: The patient will continue with the dialysis as prescribed. The patient will be set up for outpatient dialysis. She remains on Epogen for the anemia. We will follow closely. TID: [id number] RECEIPT: [id number]
[2025-06-13] MEDS ORDERED: GLUCAGON 1MG KIT 1 MG ML IM PRN (23:30)
[2025-06-14] VITALS (22 sets, daily range): BP systolic 154–174; BP diastolic 66–99; PULSE 88–105; RESP 14–18; TEMP 97.9–98.9
[2025-06-14] MEDS ORDERED: LISINOPRIL 20 MG TABLET PO SCH (09:00)
--- NOTE | 2025-06-14 22:04 | PN ---
PROGRESS NOTE PROGRESS NOTE DATE OF PROGRESS NOTE: 06/14/25 SUBJECTIVE: doing better VITAL SIGNS Vital Signs Date Time Temp Pulse Resp B/P (MAP) Pulse Ox O2 Delivery O2 Flow Rate FiO2 06/14/25 20:00 98.2 103 18 158/79 96 Room Air 06/14/25 08:20 0 21 PHYSICAL EXAM: Physical Exam Physical Exam Physical Exam Dictation VITAL SIGNS: Reviewed. GENERAL APPEARANCE: Alert, oriented x3, no acute distress. HEAD AND FACE: Non-traumatic. EYES: PERRL, pink conjunctivas, eyelid no trauma, anterior chamber clear. EARS: Pinnas intact and no signs of trauma or erythema. Ear canals clear and no discharge. TMs no erythema. NOSE: No discharge, no bleeding. OROPHARYNX: Mouth normal, teeth no caries, tongue pink. Pharynx clear, no erythema. Tonsils no exudates, no abscesses noted. Mucous membrane moist. NECK: Supple, non-tender, no thyromegaly, no masses, no JVD, no bruits. BREAST: Deferred. CHEST: No tenderness, no crepitus, no paradoxical movement, no retractions. LUNGS: Clear, well-ventilated, symmetric, no rales, no wheezing, no rhonchi, no stridor, good breath sounds bilaterally. HEART: Regular rate, regular rhythm, no murmur, no gallops. VASCULAR: No peripheral edema. ABDOMEN: Soft, positive bowel sounds, nondistended, no guarding, nontender, no rebound, no masses no hepatomegaly, no splenomegaly, no Parson's sign, no hernias. RECTAL: Deferred. GENITAL: Deferred. NEUROLOGICAL: Normal speech, gross motor function intact, gross sensory function intact. MUSCULOSKELETAL: Neck nontender, full range of motion, back nontender, full range of motion. EXTREMITIES: Nontender, full range of motion. SKIN: Color pink, dry, no turgor, no rash, no lacerations, no abrasions, no contusions. LYMPHATICS: Deferred. LABORATORY: Laboratory Result(s) Test 06/13/25 23:20 06/14/25 00:07 06/14/25 05:05 06/14/25 10:24 Whole Blood Glucose 55 MG/DL (70-110) 183 MG/DL (70-110) 101 MG/DL (70-110) 87 MG/DL (70-110) Bedside Glucose Comment Notified Nurse Test 06/14/25 16:22 06/14/25 19:47 Whole Blood Glucose 70 MG/DL (70-110) 109 MG/DL (70-110) INPATIENT MEDS: Current Medications Medications Dose Ordered Sig/Amy Start Time Stop Time Status Last Admin Ceftriaxone Sodium 1 gm Q24H 06/11/25 10:30 06/21/25 10:29 06/14/25 12:35 Insulin Human Lispro INSULIN SLIDING SCAL... ACHS 06/11/25 11:30 07/11/25 11:29 06/12/25 21:17 Estradiol 0.5 mg AM 06/12/25 09:00 07/12/25 08:59 06/14/25 08:33 Atorvastatin Calcium 40 mg HS 06/12/25 21:00 07/12/25 20:59 06/14/25 20:19 Ergocalciferol 50,000 unit QWEEK 06/18/25 09:00 07/18/25 08:59 Insulin Glargine 70 units HS 06/12/25 21:00 07/12/25 20:59 06/12/25 21:17 Epoetin Nate-epbx 10,000 unit QTUTHSA[DIALYSIS] 06/12/25 16:00 07/12/25 15:59 06/14/25 17:18 Sodium Chloride 250 ml @ 0 mls/hr AD 06/12/25 15:30 07/12/25 15:29 Sodium Chloride 1,000 ml @ 0 mls/hr ONCE 06/12/25 15:30 07/12/25 15:29 06/14/25 09:47 Glucagon 1 mg AD PRN 06/12/25 21:00 07/12/25 20:59 Dextrose 50 ml AD PRN 06/13/25 23:30 07/13/25 23:29 Glucagon 1 mg AD PRN 06/13/25 23:30 07/13/25 23:29 Heparin Sodium (Porcine) 10,000 unit AD 06/14/25 10:00 07/14/25 09:59 06/14/25 12:30 Lisinopril 40 mg DAILY 06/15/25 09:00 07/15/25 08:59 Metoprolol Tartrate 50 mg BID 06/14/25 21:00 07/14/25 20:59 9/25/25 20:19 PROBLEM LIST: (1) Acute renal failure ICD Code: N17.9 - Acute kidney failure, unspecified (2) Normocytic anemia ICD Code: D64.9 - Anemia, unspecified PLAN: admit consult nepgrology sliding scale for diabetes KANIKA SUNG MD Jun 14, 2025 22:04
[2025-06-15] VITALS: BP 144/79; PULSE 83; RESP 18; TEMP 99.2
--- NOTE | 2025-06-15 00:37 | PN ---
FOLLOWUP PROGRESS NOTE SUBJECTIVE: The patient was seen and evaluated on hemodialysis, prescription noted. PHYSICAL EXAMINATION: VITAL SIGNS: Blood pressure 162/83. CARDIOVASCULAR: Regular. LUNGS: Coarse. IMPRESSION: End-stage renal disease. PLAN: The patient continues with the dialysis prescribed. The patient is being set up for outpatient dialysis. We will follow closely. TID: [id number] RECEIPT: [id number]
[2025-06-15 04:00] VITALS: BP 141/85; PULSE 92; RESP 18; TEMP 99.3
[2025-06-15 05:17] LABS: IMMATURE GRANULOCYTE ABSOLUTE 0.03 K/uL (0-1); NUCLEATED RED BLOOD CELLS 0.3 % (0.0-0.19); PLATELET COUNT (AUTO) 345 K/uL (130-400); RED BLOOD CELL COUNT(AUTO) 2.91 MIL/uL (4.00-5.50); RED CELL DISTRIBUTION WIDTH 15.9 % (11.0-15.5); WHITE BLOOD COUNT (AUTO) 8.9 K/uL (4.8-10.8)
[2025-06-15 05:30] LABS: CREATININE 4.7 mg/dL (0.5-1.0); GLOMERULAR FILTR. RATE CALC 10.0 mL/min (>90); GLUCOSE,RANDOM 81.0 mg/dL (70-105); PHOSPHORUS 3.6 mg/dL (2.5-4.9); SODIUM SERUM 136.0 mmol/L (136-145); UREA NITROGEN, BLOOD 15.0 mg/dL (7-18)
[2025-06-15] MEDS: PoTASSium chloRIDE 20MEQ ER 20 MEQ ERTAB PO SCH (06:46)
--- NOTE | 2025-06-15 06:48 | HMCIMG ---
EXAM: US examination, one body part CLINICAL HISTORY: av access TECHNIQUE: Real-time ultrasound examination performed with image documentation. COMPARISON: None provided. FINDINGS: Left Upper Extremity Veins Cephalic Vein * Anderson: Depth 9 mm, Diameter 2 mm * Upper Arm: Depth 6 mm, Diameter 2 mm * Mid Arm: Depth 7 mm, Diameter 2 mm * Lower Arm: Depth 7 mm, Diameter 2 mm * Antecubital Fossa: Depth 7 mm, Diameter 3 mm * Upper Forearm: Depth 3 mm, Diameter 2 mm * Mid Forearm: Depth 3 mm, Diameter 2 mm * Wrist: Depth 2 mm, Diameter 1 mm Basilic Vein * Upper Arm: Depth 12 mm, Diameter 4 mm * Lower Arm: Depth 13 mm, Diameter 2 mm * Antecubital Fossa: Depth 4 mm, Diameter 3 mm IMPRESSION: 1. Venous mapping, as above. 2. Left upper extremity venous system patent with normal flow. /Anthony
[2025-06-15 08:00] VITALS: BP 162/87; PULSE 95; RESP 15; TEMP 98.4
[2025-06-15] MEDS: LISINOPRIL 40 MG TABLET PO SCH (08:44)
[2025-06-15 12:00] VITALS: BP 146/80; PULSE 83; RESP 15; TEMP 98.5
[2025-06-15] MEDS: PoTASSium chloRIDE 20MEQ ER 20 MEQ ERTAB PO ONE (12:13)
[2025-06-15 16:00] VITALS: BP 159/82; PULSE 100; RESP 16; TEMP 98.2
[2025-06-15 19:53] VITALS: BP 157/81; PULSE 102; RESP 17; TEMP 98.6
--- NOTE | 2025-06-15 21:05 | PN ---
PROGRESS NOTE PROGRESS NOTE DATE OF PROGRESS NOTE: 06/15/25 SUBJECTIVE: NO NEW COMPLAINTS VITAL SIGNS Vital Signs Date Time Temp Pulse Resp B/P (MAP) Pulse Ox O2 Delivery O2 Flow Rate FiO2 06/15/25 19:53 98.6 102 17 157/81 96 Room Air 06/15/25 07:50 0 21 PHYSICAL EXAM: Physical Exam Physical Exam Physical Exam Dictation VITAL SIGNS: Reviewed. GENERAL APPEARANCE: Alert, oriented x3, no acute distress. HEAD AND FACE: Non-traumatic. EYES: PERRL, pink conjunctivas, eyelid no trauma, anterior chamber clear. EARS: Pinnas intact and no signs of trauma or erythema. Ear canals clear and no discharge. TMs no erythema. NOSE: No discharge, no bleeding. OROPHARYNX: Mouth normal, teeth no caries, tongue pink. Pharynx clear, no erythema. Tonsils no exudates, no abscesses noted. Mucous membrane moist. NECK: Supple, non-tender, no thyromegaly, no masses, no JVD, no bruits. BREAST: Deferred. CHEST: No tenderness, no crepitus, no paradoxical movement, no retractions. LUNGS: Clear, well-ventilated, symmetric, no rales, no wheezing, no rhonchi, no stridor, good breath sounds bilaterally. HEART: Regular rate, regular rhythm, no murmur, no gallops. VASCULAR: No peripheral edema. ABDOMEN: Soft, positive bowel sounds, nondistended, no guarding, nontender, no rebound, no masses no hepatomegaly, no splenomegaly, no Parson's sign, no hernias. RECTAL: Deferred. GENITAL: Deferred. NEUROLOGICAL: Normal speech, gross motor function intact, gross sensory function intact. MUSCULOSKELETAL: Neck nontender, full range of motion, back nontender, full range of motion. EXTREMITIES: Nontender, full range of motion. SKIN: Color pink, dry, no turgor, no rash, no lacerations, no abrasions, no contusions. LYMPHATICS: Deferred. LABORATORY: Laboratory Result(s) Test 06/15/25 04:59 06/15/25 05:13 06/15/25 11:09 06/15/25 14:41 White Blood Count 8.9 K/uL (4.8-10.8) Red Blood Count 2.91 MIL/uL (4.00-5.50) Hemoglobin 7.7 g/dL (12.0-16.0) Hematocrit 24.7 % (36-48) Mean Corpuscular Volume 84.9 fL (79-99) Mean Corpuscular Hemoglobin 26.5 pg (27.0-33.0) Mean Corpuscular Hemoglobin Concent 31.2 g/dL (32.0-36.0) Red Cell Distribution Width 15.9 % (11.0-15.5) Platelet Count 345 K/uL (130-400) Mean Platelet Volume 10.5 fL (7.5-10.5) Immature Granulocyte % (Auto) 0.3 % (0-1) Neutrophils (%) (Auto) 59.8 % (40.0-77.0) Lymphocytes (%) (Auto) 24.7 % (21.0-51.0) Monocytes (%) (Auto) 11.9 % (3.0-13.0) Eosinophils (%) (Auto) 2.7 % (0.0-8.0) Basophils (%) (Auto) 0.6 % (0.0-5.0) Neutrophils # (Auto) 5.3 K/uL (1.8-7.7) Lymphocytes # (Auto) 2.2 K/uL (1.0-4.8) Monocytes # (Auto) 1.1 K/uL (0.1-1.0) Eosinophils # (Auto) 0.24 K/uL (0.00-0.70) Basophils # (Auto) 0.05 K/uL (0.00-0.20) Absolute Immature Granulocyte (auto 0.03 K/uL (0-1) Nucleated Red Blood Cells 0.3 % (0.0-0.19) Sodium Level 136 mmol/L (136-145) Potassium Level 2.9 mmol/L (3.5-5.1) Chloride Level 97 mmol/L (101-111) Carbon Dioxide Level 35 mmol/L (21-32) Blood Urea Nitrogen 15 mg/dL (7-18) Creatinine 4.7 mg/dL (0.5-1.0) Glomerular Filtration Rate Calc 10 mL/min (>90) Random Glucose 81 mg/dL (70-105) Total Calcium 7.1 mg/dL (8.5-10.1) Phosphorus Level 3.6 mg/dL (2.5-4.9) Whole Blood Glucose 86 MG/DL (70-110) 142 MG/DL (70-110) 284 MG/DL (70-110) Test 06/15/25 19:40 Whole Blood Glucose 257 MG/DL (70-110) INPATIENT MEDS: Current Medications Medications Dose Ordered Sig/Amy Start Time Stop Time Status Last Admin Ceftriaxone Sodium 1 gm Q24H 06/11/25 10:30 06/21/25 10:29 06/15/25 10:15 Insulin Human Lispro INSULIN SLIDING SCAL... ACHS 06/11/25 11:30 07/11/25 11:29 06/15/25 20:38 Estradiol 0.5 mg AM 06/12/25 09:00 07/12/25 08:59 06/15/25 08:44 Atorvastatin Calcium 40 mg HS 06/12/25 21:00 07/12/25 20:59 06/15/25 20:35 Ergocalciferol 50,000 unit QWEEK 06/18/25 09:00 07/18/25 08:59 Insulin Glargine 70 units HS 06/12/25 21:00 07/12/25 20:59 06/15/25 20:39 Epoetin Nate-epbx 10,000 unit QTUTHSA[DIALYSIS] 06/12/25 16:00 07/12/25 15:59 06/14/25 17:18 Sodium Chloride 250 ml @ 0 mls/hr AD 06/12/25 15:30 07/12/25 15:29 Sodium Chloride 1,000 ml @ 0 mls/hr ONCE 06/12/25 15:30 07/12/25 15:29 06/14/25 09:47 Dextrose 50 ml AD PRN 06/13/25 23:30 07/13/25 23:29 Glucagon 1 mg AD PRN 06/13/25 23:30 07/13/25 23:29 Heparin Sodium (Porcine) 10,000 unit AD 06/14/25 10:00 07/14/25 09:59 06/14/25 12:30 Lisinopril 40 mg DAILY 06/15/25 09:00 07/15/25 08:59 06/15/25 08:44 Metoprolol Tartrate 100 mg BID 06/15/25 21:00 07/15/25 20:59 06/15/25 20:35 PROBLEM LIST: (1) Acute renal failure ICD Code: N17.9 - Acute kidney failure, unspecified (2) Normocytic anemia ICD Code: D64.9 - Anemia, unspecified PLAN: admit consult nepgrology sliding scale for diabetes KANIKA SUNG MD Jun 15, 2025 21:05
[2025-06-16] VITALS (21 sets, daily range): BP systolic 118–168; BP diastolic 61–94; PULSE 72–99; RESP 16–20; TEMP 97.7–98.6
--- NOTE | 2025-06-16 02:42 | PN ---
FOLLOWUP PROGRESS NOTE SUBJECTIVE: The patient is a 64-year-old female with a history of known chronic renal insufficiency. The patient has been initiated on dialysis. The patient has felt well with the dialysis. The patient's uremic symptoms much improved. The patient is being set up for outpatient dialysis and she is being seen as a followup visit for all of the above. REVIEW OF SYSTEMS: GENERAL: She is feeling improved. HEENT: No change in vision. No change in hearing. CARDIOVASCULAR: No current chest pains, palpitations. PULMONARY: No shortness of breath. GASTROINTESTINAL: She is tolerating a diet. MUSCULOSKELETAL: Complaints of weakness. PHYSICAL EXAMINATION: VITAL SIGNS: Blood pressure is 162/87, pulse 90. She is afebrile. GENERAL: She is a chronically ill female, much older than appearing age. HEENT: Head is atraumatic. Pupils are equal, round, and reactive to light. Oropharynx is without exudate. Nares clear. NECK: There is no JVP. There is no thyromegaly. No ly. CARDIOVASCULAR: There is S3 or S4 gallop. LUNGS: Coarse with equal thoracic movement. ABDOMEN: Soft, nondistended, nontender. EXTREMITIES: Reveal no clubbing or cyanosis. NEUROLOGICAL: She is awake, alert. LABORATORY DATA: Sodium 136, potassium 2.9, BUN is 15 with a creatinine of 4.7. Hemoglobin 7.7, hematocrit 24. IMPRESSION: 1. End-stage renal disease. 2. Diabetes mellitus. 3. Hypertension. 4. Electrolyte abnormalities. PLAN: The patient is being set up for outpatient dialysis. We will continue to follow the patient closely. The patient's potassium will be repleted. She remains on erythropoietin injections for the anemia. Blood pressure medications continue to be adjusted. The patient is to be seen by Cardiovascular Surgery for primary access. We will follow closely. TID: [id number] RECEIPT: [id number]
--- NOTE | 2025-06-16 07:55 | PN ---
PROGRESS NOTE PROGRESS NOTE DATE OF PROGRESS NOTE: 06/16/25 SUBJECTIVE: Feels better no complaints VITAL SIGNS Vital Signs Date Time Temp Pulse Resp B/P (MAP) Pulse Ox O2 Delivery O2 Flow Rate FiO2 06/16/25 03:36 98.1 72 16 137/77 97 Room Air 06/15/25 19:58 0 21 PHYSICAL EXAM: Physical Exam Physical Exam Physical Exam Dictation VITAL SIGNS: Reviewed. GENERAL APPEARANCE: Alert, oriented x3, no acute distress. HEAD AND FACE: Non-traumatic. EYES: PERRL, pink conjunctivas, eyelid no trauma, anterior chamber clear. EARS: Pinnas intact and no signs of trauma or erythema. Ear canals clear and no discharge. TMs no erythema. NOSE: No discharge, no bleeding. OROPHARYNX: Mouth normal, teeth no caries, tongue pink. Pharynx clear, no erythema. Tonsils no exudates, no abscesses noted. Mucous membrane moist. NECK: Supple, non-tender, no thyromegaly, no masses, no JVD, no bruits. BREAST: Deferred. CHEST: No tenderness, no crepitus, no paradoxical movement, no retractions. LUNGS: Clear, well-ventilated, symmetric, no rales, no wheezing, no rhonchi, no stridor, good breath sounds bilaterally. HEART: Regular rate, regular rhythm, no murmur, no gallops. VASCULAR: No peripheral edema. ABDOMEN: Soft, positive bowel sounds, nondistended, no guarding, nontender, no rebound, no masses no hepatomegaly, no splenomegaly, no Parson's sign, no hernias. RECTAL: Deferred. GENITAL: Deferred. NEUROLOGICAL: Normal speech, gross motor function intact, gross sensory function intact. MUSCULOSKELETAL: Neck nontender, full range of motion, back nontender, full range of motion. EXTREMITIES: Nontender, full range of motion. SKIN: Color pink, dry, no turgor, no rash, no lacerations, no abrasions, no contusions. LYMPHATICS: Deferred. LABORATORY: Laboratory Result(s) Test 06/15/25 11:09 06/15/25 14:41 06/15/25 19:40 06/16/25 05:19 Whole Blood Glucose 142 MG/DL (70-110) 284 MG/DL (70-110) 257 MG/DL (70-110) 89 MG/DL (70-110) INPATIENT MEDS: Current Medications Medications Dose Ordered Sig/Amy Start Time Stop Time Status Last Admin Insulin Human Lispro INSULIN SLIDING SCAL... ACHS 06/11/25 11:30 07/11/25 11:29 06/15/25 20:38 Estradiol 0.5 mg AM 06/12/25 09:00 07/12/25 08:59 06/15/25 08:44 Atorvastatin Calcium 40 mg HS 06/12/25 21:00 07/12/25 20:59 06/15/25 20:35 Ergocalciferol 50,000 unit QWEEK 06/18/25 09:00 07/18/25 08:59 Insulin Glargine 70 units HS 06/12/25 21:00 07/12/25 20:59 06/15/25 20:39 Epoetin Nate-epbx 10,000 unit QTUTHSA[DIALYSIS] 06/12/25 16:00 07/12/25 15:59 06/14/25 17:18 Sodium Chloride 250 ml @ 0 mls/hr AD 06/12/25 15:30 07/12/25 15:29 Sodium Chloride 1,000 ml @ 0 mls/hr ONCE 06/12/25 15:30 07/12/25 15:29 06/14/25 09:47 Dextrose 50 ml AD PRN 06/13/25 23:30 07/13/25 23:29 Glucagon 1 mg AD PRN 06/13/25 23:30 07/13/25 23:29 Heparin Sodium (Porcine) 10,000 unit AD 06/14/25 10:00 07/14/25 09:59 06/14/25 12:30 Lisinopril 40 mg DAILY 06/15/25 09:00 07/15/25 08:59 06/15/25 08:44 Metoprolol Tartrate 100 mg BID 06/15/25 21:00 07/15/25 20:59 06/15/25 20:35 PROBLEM LIST: (1) Acute renal failure ICD Code: N17.9 - Acute kidney failure, unspecified (2) Normocytic anemia ICD Code: D64.9 - Anemia, unspecified PLAN: admit consult nepgrology sliding scale for diabetes KANIKA SUNG MD Jun 16, 2025 07:55
--- NOTE | 2025-06-16 10:15 | CONS ---
REFERRING PHYSICIANS: Lucho Weber MD and Bear Nash MD CONSULTING PHYSICIANS: Alphonse Parikh MD and Joshua Garcia MD REASON FOR CONSULTATION: End-stage renal failure, need for permanent hemodialysis access. HISTORY: The patient is a 64-year-old new to hemodialysis and is referred for creation of AV fistula. I had the opportunity to review the ultrasound and I have discussed with the patient the different modes of therapy including peritoneal and hemodialysis. The patient chose to proceed with hemodialysis and understands that although she has got a temporary catheter for that purpose, then a permanent form of access like an AV fistula would be preferable. The patient understands the indications of the procedure as well as the potential complications, which include, but are not limited to steal syndrome and/or the need for multiple operations related to the creation of the AV fistula. She understands and wishes to proceed. Plan for surgery on Wednesday. TID: [id number] RECEIPT: [id number]
[2025-06-17 00:09] VITALS: BP 139/81; PULSE 83; RESP 19; TEMP 98
--- NOTE | 2025-06-17 03:39 | PN ---
NEPHROLOGY NOTE DATE OF SERVICE: 06/16/2025. SUBJECTIVE: Nephrology note for hemodialysis, tolerated hemodialysis, chest has crackles. Extremities have no edema and neurologically unchanged. The patient has no fever or chills. No other associated symptoms. No other aggravating or alleviating factors. The patient is generally weak. PHYSICAL EXAMINATION: GENERAL: No other distress or deformity. Lying in bed. VITAL SIGNS: Blood pressure is 118/74. Respiratory rate is 18. Afebrile. HEENT: Head is atraumatic, normocephalic. Pupils are round and reactive. Sclerae are anicteric. Conjunctivae not pale. Oral mucosa is not dry. NECK: Supple. Without masses or bruits. Thyroid is palpable. CHEST: Shows equal thoracic percussion note being resonant in all areas. CARDIAC: Regular rhythm. No rub. No S3 or S4. LABORATORY DATA: ____ and old records reviewed. IMAGING STUDIES: Imaging studies are personally reviewed. PROBLEMS: * Renal failure. * Anemia. * Multiple comorbidities. PLAN: Continue dialysis support. Continue monitoring of renal function. Continue monitoring of electrolytes. Intake, output, weight will be monitored. Nonsteroidal drugs will be avoided. Dose of medicine will be adjusted. The patient was evaluated and seen for dialysis and seen multiple times. TID: [id number] RECEIPT: [id number]
[2025-06-17 04:07] VITALS: BP 131/76; PULSE 81; RESP 18; TEMP 97.8
--- NOTE | 2025-06-17 04:23 | PN ---
NEPHROLOGY NOTE DATE OF SERVICE: 06/16/2025. SUBJECTIVE: Nephrology note for renal failure, anemia, and multiple other comorbidities. No other associated findings. No other aggravating or relieving factors. The patient is weak. The patient has no other associated symptoms. No other aggravating or relieving factors. PHYSICAL EXAMINATION: GENERAL: No other distress or deformity. Lying in bed. VITAL SIGNS: Blood pressure is 152/76. Pulse 96. Respiratory rate is 18. Afebrile. HEENT: Head is atraumatic and normocephalic. Pupils are round and reactive. Sclerae are anicteric. Conjunctivae not pale. Oral mucosa is not dry. NECK: Supple. Without masses or bruits. Thyroid is palpable. LABORATORY DATA: Labs have been reviewed and old records reviewed. IMAGING STUDIES: Imaging studies are personally reviewed. PROBLEMS: * Renal failure. * Anemia. * End-stage renal disease, on dialysis. PLAN: Continue monitoring. Followup renal function. Followup on electrolytes. Continue dialysis. The patient was evaluated and seen for dialysis and seen several times. TID: [id number] RECEIPT: [id number]
[2025-06-17 04:56] LABS: NUCLEATED RED BLOOD CELLS 0.3 % (0.0-0.19); PLATELET COUNT (AUTO) 334 K/uL (130-400); RED BLOOD CELL COUNT(AUTO) 2.85 MIL/uL (4.00-5.50); RED CELL DISTRIBUTION WIDTH 17.2 % (11.0-15.5); WHITE BLOOD COUNT (AUTO) 8.6 K/uL (4.8-10.8)
[2025-06-17 05:21] LABS: ASPARTATE AMINOTRANSFERASE 17.0 U/L (10-37); CREATININE 4.6 mg/dL (0.5-1.0); GLOMERULAR FILTR. RATE CALC 10.0 mL/min (>90); GLUCOSE,RANDOM 53.0 mg/dL (70-105); PHOSPHORUS 3.2 mg/dL (2.5-4.9); SODIUM SERUM 139.0 mmol/L (136-145); TOTAL PROTEIN, SERUM 5.9 g/dL (6.0-8.3); UREA NITROGEN, BLOOD 12.0 mg/dL (7-18)
[2025-06-17 05:30] LABS: EOSINOPHILS % (MANUAL) 1 % (1-6); LYMPHOCYTES % (MANUAL) 26 % (22-44); MAN.DIFF COMMENT-IMPRESSION MANUAL DIFFERENTIAL; MONOCYTES % (MANUAL) 11 % (2-9); PLATELET MORPHOLOGY COMMENT ADEQUATE; SEGMENTED NEUTROPHILS % 62 % (40-70)
[2025-06-17] MEDS: DEXTROSE 50%-WATER 50 ML DISP.SYRIN IV PRN (05:39)
[2025-06-17 08:00] VITALS: BP 159/91; PULSE 95; RESP 17; TEMP 98.2
--- NOTE | 2025-06-17 09:26 | PN ---
NEPHROLOGY PROGRESS NOTE Date/Time Patient Seen: Jun 17, 2025 SUBJECTIVE: The patient is a 64-year-old female with a history of known chronic renal insufficiency. The patient has been initiated on dialysis. The patient has felt well with the dialysis. The patient's uremic symptoms much improved. The patient is being set up for outpatient dialysis and she is being seen as a followup visit for all of the above. She remains on erythropoietin injections for the anemia. Blood pressure medications continue to be adjusted. The patient is to be seen by Cardiovascular Surgery for primary access, tentatively scheduled for AV access on Wednesday She tolerated dialysis without difficulty yesterday She was seen in the medical floor. REVIEW OF SYSTEMS: GENERAL: Positive for cough NEUROLOGIC: Negative for any blurry vision, blind spots, double vision, facial asymmetry, dysphagia, dysarthria, hemiparesis, hemisensory deficits, vertigo, ataxia. HEENT: Negative for any head trauma, neck trauma, neck stiffness, photophobia, phonophobia, sinusitis, rhinitis. CARDIAC: Negative for any chest pain, dyspnea on exertion, paroxysmal nocturnal dyspnea, peripheral edema. PULMONARY: Negative for any shortness of breath, wheezing, COPD, or TB exposure. GASTROINTESTINAL: Negative for any abdominal pain, nausea, vomiting, bright red blood per rectum, melena. GENITOURINARY: Negative for any dysuria, hematuria, incontinence. INTEGUMENTARY: Negative for any rashes, cuts, insect bites. RHEUMATOLOGIC: Negative for any joint pains, photosensitive rashes, history of vasculitis or kidney problems. HEMATOLOGIC: Negative for any abnormal bruising, frequent infections or bleeding. Vital Signs (last 8hr) Date Time Temp Pulse Resp B/P (MAP) Pulse Ox O2 Delivery O2 Flow Rate FiO2 06/17/25 08:00 98.2 95 17 159/91 99 Room Air 06/17/25 04:07 97.9 81 18 131/76 98 Room Air PHYSICAL EXAM: GENERAL: Alert and oriented x 3. No acute distress. Well-nourished. EYES: EOMI. Anicteric. HENT: Moist mucous membranes. No scleral icterus. No cervical lymphadenopathy. LUNGS: Clear to auscultation bilaterally. No accessory muscle use. CARDIOVASCULAR: Regular rate and rhythm. No murmur. No JVD. ABDOMEN: Soft, non-tender and non-distended. No palpable masses. EXTREMITIES: No edema. Non-tender. SKIN: No rashes or lesions. Warm. NEUROLOGIC: No focal neurological deficits. CN II-XII grossly intact, but not individually tested. PSYCHIATRIC: Cooperative. Appropriate mood and affect. Current Medications Medications (Trade) Dose Ordered Sig/Amy Route Start Time Stop Time Status Last Admin Dose Admin Amlodipine Besylate (NorvASC 5MG TAB) 5 mg DAILY PO 06/12/25 09:00 06/13/25 09:22 DC Atorvastatin Calcium (LIPItor 40MG) 40 mg HS PO 06/12/25 21:00 07/12/25 20:59 06/16/25 21:43 40 MG Ceftriaxone Sodium (ROCEphine 1G INJ) 1 gm Q24H IVPB 06/11/25 10:30 06/16/25 07:18 DC 06/15/25 10:15 1 GM Epoetin Nate-epbx (Retacrit) 10,000 unit QTUTHSA[DIALYSIS] SQ 06/12/25 16:00 07/12/25 15:59 06/16/25 15:30 10,000 UNIT Ergocalciferol (Drisdol) 50,000 unit QWEEK PO 06/18/25 09:00 07/18/25 08:59 Estradiol (Estradiol) 0.5 mg AM PO 06/12/25 09:00 07/12/25 08:59 06/16/25 08:49 0.5 MG Heparin Sodium (Porcine) (HEParin 5,000 UNIT VIAL) 10,000 unit AD IRRIG 06/13/25 10:00 06/14/25 09:49 DC 06/13/25 18:10 10,000 UNIT Heparin Sodium (Porcine) (HEParin 5,000 UNIT VIAL) 10,000 unit AD IRRIG 06/14/25 10:00 07/14/25 09:59 06/16/25 11:45 10,000 UNIT Hydrochlorothiazide (hydroCHLOROthiazide 25MG) 12.5 mg DAILY PO 06/12/25 09:00 06/13/25 09:22 DC Insulin Glargine (LANtus 100 UNITS/ML 10 ML VIAL) 60 units HS SQ 06/17/25 21:00 07/17/25 20:59 Insulin Glargine (LANtus 100 UNITS/ML 10 ML VIAL) 70 units HS SQ 06/12/25 21:00 06/17/25 06:25 DC 06/16/25 21:50 70 UNITS Insulin Human Lispro (HumaLOG LISpro 100 UNIT/ML 3ML) INSULIN SLIDING SCAL... ACHS SQ 06/11/25 11:30 07/11/25 11:29 06/16/25 21:51 4 UNIT Lisinopril (Prinivil 20mg) 20 mg DAILY PO 06/14/25 09:00 06/14/25 10:00 DC Lisinopril (Prinivil 40mg) 40 mg AM PO 06/12/25 09:00 06/12/25 06:54 DC Lisinopril (Prinivil 40mg) 40 mg DAILY PO 06/15/25 09:00 07/15/25 08:59 06/15/25 08:44 40 MG Metformin HCl (glucoPHAGE) 500 mg BID PO 06/12/25 09:00 06/12/25 00:27 DC Metoprolol Tartrate (loprESSOR) 50 mg BID PO 06/14/25 21:00 06/15/25 11:57 DC 06/15/25 08:44 50 MG Metoprolol Tartrate (loprESSOR) 100 mg BID PO 06/15/25 21:00 07/15/25 20:59 06/16/25 21:43 100 MG Potassium Chloride (K-Dur/Klor-Con 20meq) 20 meq QTK580 PO 06/15/25 06:30 06/15/25 14:00 DC 06/15/25 06:46 20 MEQ Sodium Chloride 250 ml @ 0 mls/hr AD IV 06/12/25 15:30 07/12/25 15:29 Sodium Chloride 1,000 ml @ 0 mls/hr ONCE IV 06/12/25 15:30 07/12/25 15:29 06/16/25 11:45 1,000 MLS/HR LABORATORY: [ ] Hematology Labs: Test 06/17/25 04:34 Range/Units White Blood Count 8.6 4.8-10.8 K/uL Red Blood Count 2.85 L 4.00-5.50 MIL/uL Hemoglobin 7.5 L 12.0-16.0 g/dL Hematocrit 25.3 L 36-48 % Mean Corpuscular Volume 88.8 79-99 fL Mean Corpuscular Hemoglobin 26.3 L 27.0-33.0 pg Mean Corpuscular Hemoglobin Concent 29.6 L 32.0-36.0 g/dL Red Cell Distribution Width 17.2 H 11.0-15.5 % Platelet Count 334 130-400 K/uL Mean Platelet Volume 10.3 7.5-10.5 fL Segmented Neutrophils % 62 40-70 % Lymphocytes % (Manual) 26 22-44 % Monocytes % (Manual) 11 H 2-9 % Eosinophils % (Manual) 1 1-6 % Nucleated Red Blood Cells 0.3 H 0.0-0.19 % Differential Comment MANUAL DIFFERENTIAL White Cell Morphology Comment Platelet Morphology Comment ADEQUATE Red Blood Cell Morphology See comments Chemistry Labs: Test 06/17/25 05:57 06/17/25 04:34 06/16/25 16:14 Range/Units Whole Blood Glucose 190 #H 70-110 MG/DL Sodium Level 139 136-145 mmol/L Potassium Level 3.8 3.5-5.1 mmol/L Chloride Level 99 L 101-111 mmol/L Carbon Dioxide Level 33 H 21-32 mmol/L Blood Urea Nitrogen 12 7-18 mg/dL Creatinine 4.6 H 0.5-1.0 mg/dL Glomerular Filtration Rate Calc 10 >90 mL/min Random Glucose 53 L 70-105 mg/dL Total Calcium 7.0 L 8.5-10.1 mg/dL Phosphorus Level 3.2 2.5-4.9 mg/dL Magnesium Level 1.90 1.80-2.40 mg/dL Total Bilirubin 0.1 L 0.2-1.0 mg/dL Aspartate Amino Transf (AST/SGOT) 17 10-37 U/L Alanine Aminotransferase (ALT/SGPT) 18 12-78 U/L Alkaline Phosphatase 58 50-136 U/L Total Protein 5.9 L 6.0-8.3 g/dL Albumin 1.8 L 3.5-5.0 g/dL Bedside Glucose Comment Notified Nurse DIAGNOSTICS / RADIOLOGY: [place] [id number] [address] IMAGING REPORT Signed PATIENT: JUAN R ROGERS MR#: [id number] : 1960 SEX: F AGE: 64 LOCATION: [facility] ORDER 1509 STATUS: ADM IN REPORT#: [id number] SERVICE 1735 REASON: FIRST TIME DIALYSIS PT ORDERING PHYSICIAN: TALIA ESPANA MD PROCEDURE: CXR1VW - CHEST 1VW EXAM: XR Chest, 1 View. CLINICAL HISTORY: 64 year old female with first time on dialysis. COMPARISON: XR Chest 06/11/25. FINDINGS: LUNGS: The lungs are not clear. There are consolidations in the lower lobes, suggesting pneumonia. PLEURAL SPACES: There are small bilateral pleural effusions. HEART: The heart size is normal. The right internal jugular central line tip is in the SVC. BONES: No acute osseous abnormality. IMPRESSION: 1. Small bilateral pleural effusions and lower lobe consolidations, suggesting pneumonia. Correlate clinically. Similar to prior XR Chest 06/11/25. 2. Right internal jugular central line tip in the SVC. /[place] DICTATED BY: IONA PUENTES MD DATE: 06/12/252052 ELECTRONICALLY SIGNED BY: IONA PUENTES MD DATE: 06/12/252052 PATIENT: JUAN R ROGERS MR#: [id number] : 1960 SEX: F AGE: 64 LOCATION: [facility] ORDER 0912 STATUS: ADM IN REPORT#: [id number] SERVICE 0910 REASON: av access ORDERING PHYSICIAN: TALIA ESPANA MD PROCEDURE: VEIN M UNI - US VEIN MAPPING UNI/LTD EXAM: US examination, one body part CLINICAL HISTORY: av access TECHNIQUE: Real-time ultrasound examination performed with image documentation. COMPARISON: None provided. FINDINGS: Left Upper Extremity Veins Cephalic Vein * [place]: Depth 9 mm, Diameter 2 mm * Upper Arm: Depth 6 mm, Diameter 2 mm * Mid Arm: Depth 7 mm, Diameter 2 mm * Lower Arm: Depth 7 mm, Diameter 2 mm * Antecubital Fossa: Depth 7 mm, Diameter 3 mm * Upper Forearm: Depth 3 mm, Diameter 2 mm * Mid Forearm: Depth 3 mm, Diameter 2 mm * Wrist: Depth 2 mm, Diameter 1 mm Basilic Vein * Upper Arm: Depth 12 mm, Diameter 4 mm * Lower Arm: Depth 13 mm, Diameter 2 mm * Antecubital Fossa: Depth 4 mm, Diameter 3 mm IMPRESSION: 1. Venous mapping, as above. 2. Left upper extremity venous system patent with normal flow. /[place] DICTATED BY: HARVINDER TORRES MD DATE: 06/15/25747 ELECTRONICALLY SIGNED BY: HARVINDER TORRES MD DATE: 06/15/25747 PATIENT: JUAN R ROGERS MR#: [id number] : 1960 SEX: F AGE: 64 LOCATION: [facility] ORDER 9 STATUS: [facility] REPORT#: [id number] SERVICE 7 REASON: dizziness ORDERING PHYSICIAN: ESTHELA AMADOR DO PROCEDURE: CXR1VW - CHEST 1VW EXAM: CR Chest, 1 View. CLINICAL HISTORY: dizziness COMPARISON: None provided. FINDINGS: There is multifocal airspace disease within the bilateral lower lobes, and small bilateral effusions. There is no pneumothorax. Heart size is stable. Mild central pulmonary vascular congestion. IMPRESSION: 1. Multifocal airspace disease in bilateral lower lobes, concerning for pneumonia, with small bilateral pleural effusions. 2. Mild central pulmonary vascular congestion. /[place] DICTATED BY: CASS AGUILAR Jr., MD DATE: 06/11/251217 ELECTRONICALLY SIGNED BY: CASS AGUILAR Jr., MD DATE: 06/11/251217 ASSESSMENT: End stage renal disease Anemia Community-acquired pneumonia Hypertension Diabetes mellitus type PLAN: Labs, diagnostic, radiologic exams reviewed and interpreted by myself and supervising physician. We have reviewed external records in detail Continue with dialysis schedule Wednesday Pending AV access creation, tentatively scheduled for Wednesday. Case management coordinating outpatient dialysis chair. Require close monitoring of renal function and electrolytes Order CBC, CMP, and electrolytes in am Renal diabetic diet BiPAP as necessary, for respiratory distress Monitor blood pressure adjust medication doses as needed Avoid hypotensive episodes May use Dilaudid 0.5 mg IV every 6 hours as needed for severe pain Monitor blood sugars Strict intake, output, and daily weight should be monitored Please renally adjust medications Avoid nephrotoxic and nonsteroidal drugs Avoid contrast if possible Will continue to monitor renal function, anemia, electrolytes Treatment plan discussed with patient Questions were answered We have discussed with the other team physicians in detail about the care plan We will continue to monitor the patient closely ATTESTATION BY PHYSICIAN I have seen and examined the patient. I reviewed the documentation, medical decision making, and treatment plan as noted by the mid-level provider above. I agree with the findings and plan of care. ROSAS PIEDRA MD, [facility] Jun 17, 2025 09:26
[2025-06-17 12:00] VITALS: BP 135/75; PULSE 79; RESP 19; TEMP 98.3
--- NOTE | 2025-06-17 14:57 | PN ---
PROGRESS NOTE PROGRESS NOTE DATE OF PROGRESS NOTE: 06/17/25 SUBJECTIVE: No new complaints VITAL SIGNS Vital Signs Date Time Temp Pulse Resp B/P (MAP) Pulse Ox O2 Delivery O2 Flow Rate FiO2 06/17/25 08:00 98.2 95 17 159/91 99 Room Air 06/17/25 07:40 0 21 PHYSICAL EXAM: Physical Exam Physical Exam Physical Exam Dictation VITAL SIGNS: Reviewed. GENERAL APPEARANCE: Alert, oriented x3, no acute distress. HEAD AND FACE: Non-traumatic. EYES: PERRL, pink conjunctivas, eyelid no trauma, anterior chamber clear. EARS: Pinnas intact and no signs of trauma or erythema. Ear canals clear and no discharge. TMs no erythema. NOSE: No discharge, no bleeding. OROPHARYNX: Mouth normal, teeth no caries, tongue pink. Pharynx clear, no erythema. Tonsils no exudates, no abscesses noted. Mucous membrane moist. NECK: Supple, non-tender, no thyromegaly, no masses, no JVD, no bruits. BREAST: Deferred. CHEST: No tenderness, no crepitus, no paradoxical movement, no retractions. LUNGS: Clear, well-ventilated, symmetric, no rales, no wheezing, no rhonchi, no stridor, good breath sounds bilaterally. HEART: Regular rate, regular rhythm, no murmur, no gallops. VASCULAR: No peripheral edema. ABDOMEN: Soft, positive bowel sounds, nondistended, no guarding, nontender, no rebound, no masses no hepatomegaly, no splenomegaly, no Parson's sign, no hernias. RECTAL: Deferred. GENITAL: Deferred. NEUROLOGICAL: Normal speech, gross motor function intact, gross sensory function intact. MUSCULOSKELETAL: Neck nontender, full range of motion, back nontender, full range of motion. EXTREMITIES: Nontender, full range of motion. SKIN: Color pink, dry, no turgor, no rash, no lacerations, no abrasions, no contusions. LYMPHATICS: Deferred. LABORATORY: Laboratory Result(s) Test 06/16/25 16:14 06/16/25 19:37 06/17/25 01:30 06/17/25 02:14 Whole Blood Glucose 207 MG/DL (70-110) 189 MG/DL (70-110) 51 MG/DL (70-110) 68 MG/DL (70-110) Bedside Glucose Comment Notified Nurse Test 06/17/25 03:15 06/17/25 04:34 06/17/25 05:12 06/17/25 05:57 Whole Blood Glucose 74 MG/DL (70-110) 59 MG/DL (70-110) 190 MG/DL (70-110) White Blood Count 8.6 K/uL (4.8-10.8) Red Blood Count 2.85 MIL/uL (4.00-5.50) Hemoglobin 7.5 g/dL (12.0-16.0) Hematocrit 25.3 % (36-48) Mean Corpuscular Volume 88.8 fL (79-99) Mean Corpuscular Hemoglobin 26.3 pg (27.0-33.0) Mean Corpuscular Hemoglobin Concent 29.6 g/dL (32.0-36.0) Red Cell Distribution Width 17.2 % (11.0-15.5) Platelet Count 334 K/uL (130-400) Mean Platelet Volume 10.3 fL (7.5-10.5) Segmented Neutrophils % 62 % (40-70) Lymphocytes % (Manual) 26 % (22-44) Monocytes % (Manual) 11 % (2-9) Eosinophils % (Manual) 1 % (1-6) Nucleated Red Blood Cells 0.3 % (0.0-0.19) Differential Comment MANUAL DIFFERENTIAL White Cell Morphology Comment Platelet Morphology Comment ADEQUATE Red Blood Cell Morphology See comments Sodium Level 139 mmol/L (136-145) Potassium Level 3.8 mmol/L (3.5-5.1) Chloride Level 99 mmol/L (101-111) Carbon Dioxide Level 33 mmol/L (21-32) Blood Urea Nitrogen 12 mg/dL (7-18) Creatinine 4.6 mg/dL (0.5-1.0) Glomerular Filtration Rate Calc 10 mL/min (>90) Random Glucose 53 mg/dL (70-105) Total Calcium 7.0 mg/dL (8.5-10.1) Phosphorus Level 3.2 mg/dL (2.5-4.9) Magnesium Level 1.90 mg/dL (1.80-2.40) Total Bilirubin 0.1 mg/dL (0.2-1.0) Aspartate Amino Transf (AST/SGOT) 17 U/L (10-37) Alanine Aminotransferase (ALT/SGPT) 18 U/L (12-78) Alkaline Phosphatase 58 U/L (50-136) Total Protein 5.9 g/dL (6.0-8.3) Albumin 1.8 g/dL (3.5-5.0) Test 06/17/25 11:28 Whole Blood Glucose 178 MG/DL (70-110) INPATIENT MEDS: Current Medications Medications Dose Ordered Sig/Amy Start Time Stop Time Status Last Admin Insulin Human Lispro INSULIN SLIDING SCAL... ACHS 06/11/25 11:30 07/11/25 11:29 06/16/25 21:51 Estradiol 0.5 mg AM 06/12/25 09:00 07/12/25 08:59 06/17/25 09:25 Atorvastatin Calcium 40 mg HS 06/12/25 21:00 07/12/25 20:59 06/16/25 21:43 Ergocalciferol 50,000 unit QWEEK 06/18/25 09:00 07/18/25 08:59 Epoetin Nate-epbx 10,000 unit QTUTHSA[DIALYSIS] 06/12/25 16:00 07/12/25 15:59 06/16/25 15:30 Sodium Chloride 250 ml @ 0 mls/hr AD 06/12/25 15:30 07/12/25 15:29 Sodium Chloride 1,000 ml @ 0 mls/hr ONCE 06/12/25 15:30 07/12/25 15:29 06/16/25 11:45 Dextrose 50 ml AD PRN 06/13/25 23:30 07/13/25 23:29 06/17/25 05:39 Glucagon 1 mg AD PRN 06/13/25 23:30 07/13/25 23:29 Heparin Sodium (Porcine) 10,000 unit AD 06/14/25 10:00 07/14/25 09:59 06/16/25 11:45 Lisinopril 40 mg DAILY 06/15/25 09:00 07/15/25 08:59 06/17/25 09:25 Metoprolol Tartrate 100 mg BID 06/15/25 21:00 07/15/25 20:59 06/17/25 09:25 Insulin Glargine 60 units HS 06/17/25 21:00 07/17/25 20:59 PROBLEM LIST: (1) Acute renal failure ICD Code: N17.9 - Acute kidney failure, unspecified (2) Normocytic anemia ICD Code: D64.9 - Anemia, unspecified PLAN: admit consult nepgrology sliding scale for diabetes KANIKA SUNG MD Jun 17, 2025 14:57
[2025-06-17 16:00] VITALS: BP 149/87; PULSE 89; RESP 19; TEMP 98.5
[2025-06-17 20:06] VITALS: BP 147/72; PULSE 98; RESP 20; TEMP 98.1
[2025-06-18] VITALS (27 sets, daily range): BP systolic 128–160; BP diastolic 62–86; PULSE 74–105; RESP 14–19; TEMP 97.5–99; O2SAT 95–97
[2025-06-18 05:20] LABS: NUCLEATED RED BLOOD CELLS 0.3 % (0.0-0.19); PLATELET COUNT (AUTO) 369.0 K/uL (130-400); RED BLOOD CELL COUNT(AUTO) 2.99 MIL/uL (4.00-5.50); RED CELL DISTRIBUTION WIDTH 18.0 % (11.0-15.5); WHITE BLOOD COUNT (AUTO) 10.5 K/uL (4.8-10.8)
[2025-06-18 05:32] LABS: INR 1.12 (0.85-1.15)
[2025-06-18 05:43] LABS: ASPARTATE AMINOTRANSFERASE 19.0 U/L (10-37); CREATININE 6.2 mg/dL (0.5-1.0); GLOMERULAR FILTR. RATE CALC 7.0 mL/min (>90); PHOSPHORUS 3.1 mg/dL (2.5-4.9); SODIUM SERUM 141.0 mmol/L (136-145); TOTAL PROTEIN, SERUM 6.6 g/dL (6.0-8.3); UREA NITROGEN, BLOOD 21.0 mg/dL (7-18)
[2025-06-18 05:45] LABS: GLUCOSE,RANDOM 47.0 mg/dL (70-105)
[2025-06-18] MEDS: ERGOCALCIFEROL (VITAMIN D2) 50,000 UNIT CAPSULE PO SCH (07:50)
[2025-06-18] MEDS ORDERED: HEParin-NS 1,000 UNIT/500 ML 500 ML IV ONE (09:13)
[2025-06-18] MEDS ORDERED: ALBUMIN (HUMAN) 5% 250 ML IV ONE (09:15)
[2025-06-18] MEDS ORDERED: LIDOCAINE HCL 1% 20 ML VIAL ONE (10:41)
[2025-06-18] MEDS ORDERED: MIDAZOLAM HCL 1 MG/ML 2ML VIAL ONE (11:08)
[2025-06-18] MEDS: DEXTROSE 50%-WATER 50 ML DISP.SYRIN IV ONE (11:14)
[2025-06-18] MEDS ORDERED: GLYCOPYRROLATE 0.2 MG/ML 5 ML VIAL ONE (12:05)
[2025-06-18] MEDS ORDERED: NEOSTIGMINE METHYLSULFATE 1MG/ML IV ONE (12:05)
--- NOTE | 2025-06-18 12:42 | NUR ---
Discharge Upate: Updated clinicals faxed to WILIAM Senior at . Pending formal authorization and dialysis fax letter.
--- NOTE | 2025-06-18 13:11 | PN ---
NEPHROLOGY PROGRESS NOTE Date/Time Patient Seen: Jun 18, 2025 SUBJECTIVE: The patient is a 64-year-old female with a history of known chronic renal insufficiency. The patient has been initiated on dialysis. The patient has felt well with the dialysis. The patient's uremic symptoms much improved. The patient is being set up for outpatient dialysis and she is being seen as a followup visit for all of the above. She remains on erythropoietin injections for the anemia. Blood pressure medications continue to be adjusted. S/P AV access She tolerated dialysis without difficulty She was seen in the medical floor. REVIEW OF SYSTEMS: GENERAL: Positive for cough NEUROLOGIC: Negative for any blurry vision, blind spots, double vision, facial asymmetry, dysphagia, dysarthria, hemiparesis, hemisensory deficits, vertigo, ataxia. HEENT: Negative for any head trauma, neck trauma, neck stiffness, photophobia, phonophobia, sinusitis, rhinitis. CARDIAC: Negative for any chest pain, dyspnea on exertion, paroxysmal nocturnal dyspnea, peripheral edema. PULMONARY: Negative for any shortness of breath, wheezing, COPD, or TB exposure. GASTROINTESTINAL: Negative for any abdominal pain, nausea, vomiting, bright red blood per rectum, melena. GENITOURINARY: Negative for any dysuria, hematuria, incontinence. INTEGUMENTARY: Negative for any rashes, cuts, insect bites. RHEUMATOLOGIC: Negative for any joint pains, photosensitive rashes, history of vasculitis or kidney problems. HEMATOLOGIC: Negative for any abnormal bruising, frequent infections or bleeding. Vital Signs (last 8hr) Date Time Temp Pulse Resp B/P (MAP) Pulse Ox O2 Delivery O2 Flow Rate FiO2 06/18/25 13:10 75 15 149/75 96 Nasal Cannula 2.0 06/18/25 13:05 75 14 145/75 96 Nasal Cannula 2.0 06/18/25 13:00 76 15 147/71 96 Nasal Cannula 2.0 06/18/25 12:55 79 17 144/75 96 Nasal Cannula 2.0 06/18/25 12:50 76 16 144/73 96 Nasal Cannula 2.0 06/18/25 12:45 74 15 141/72 97 Nasal Cannula 2.0 06/18/25 12:40 80 14 144/74 99 Nonrebreathing Mask 10.0 06/18/25 12:35 81 15 148/70 100 Nonrebreathing Mask 10.0 06/18/25 12:30 78 15 150/77 100 Nonrebreathing Mask 10.0 06/18/25 12:25 79 16 135/70 100 Nonrebreathing Mask 10.0 06/18/25 12:20 84 15 143/74 100 Nonrebreathing Mask 10.0 06/18/25 12:15 98.2 93 14 155/76 100 Nonrebreathing Mask 10.0 06/18/25 08:00 97.9 99 18 160/84 95 Room Air PHYSICAL EXAM: GENERAL: Alert and oriented x 3. No acute distress. Well-nourished. EYES: EOMI. Anicteric. HENT: Moist mucous membranes. No scleral icterus. No cervical lymphadenopathy. LUNGS: Clear to auscultation bilaterally. No accessory muscle use. CARDIOVASCULAR: Regular rate and rhythm. No murmur. No JVD. ABDOMEN: Soft, non-tender and non-distended. No palpable masses. EXTREMITIES: No edema. Non-tender. SKIN: No rashes or lesions. Warm. NEUROLOGIC: No focal neurological deficits. CN II-XII grossly intact, but not individually tested. PSYCHIATRIC: Cooperative. Appropriate mood and affect. Current Medications Medications (Trade) Dose Ordered Sig/Amy Route Start Time Stop Time Status Last Admin Dose Admin Amlodipine Besylate (NorvASC 5MG TAB) 5 mg DAILY PO 06/12/25 09:00 06/13/25 09:22 DC Atorvastatin Calcium (LIPItor 40MG) 40 mg HS PO 06/12/25 21:00 07/12/25 20:59 06/16/25 21:43 40 MG Ceftriaxone Sodium (ROCEphine 1G INJ) 1 gm Q24H IVPB 06/11/25 10:30 06/16/25 07:18 DC 06/15/25 10:15 1 GM Epoetin Nate-epbx (Retacrit) 10,000 unit QTUTHSA[DIALYSIS] SQ 06/12/25 16:00 07/12/25 15:59 06/16/25 15:30 10,000 UNIT Ergocalciferol (Drisdol) 50,000 unit QWEEK PO 06/18/25 09:00 07/18/25 08:59 Estradiol (Estradiol) 0.5 mg AM PO 06/12/25 09:00 07/12/25 08:59 06/16/25 08:49 0.5 MG Heparin Sodium (Porcine) (HEParin 5,000 UNIT VIAL) 10,000 unit AD IRRIG 06/13/25 10:00 06/14/25 09:49 DC 06/13/25 18:10 10,000 UNIT Heparin Sodium (Porcine) (HEParin 5,000 UNIT VIAL) 10,000 unit AD IRRIG 06/14/25 10:00 07/14/25 09:59 06/16/25 11:45 10,000 UNIT Hydrochlorothiazide (hydroCHLOROthiazide 25MG) 12.5 mg DAILY PO 06/12/25 09:00 06/13/25 09:22 DC Insulin Glargine (LANtus 100 UNITS/ML 10 ML VIAL) 60 units HS SQ 06/17/25 21:00 07/17/25 20:59 Insulin Glargine (LANtus 100 UNITS/ML 10 ML VIAL) 70 units HS SQ 06/12/25 21:00 06/17/25 06:25 DC 06/16/25 21:50 70 UNITS Insulin Human Lispro (HumaLOG LISpro 100 UNIT/ML 3ML) INSULIN SLIDING SCAL... ACHS SQ 06/11/25 11:30 07/11/25 11:29 06/16/25 21:51 4 UNIT Lisinopril (Prinivil 20mg) 20 mg DAILY PO 06/14/25 09:00 06/14/25 10:00 DC Lisinopril (Prinivil 40mg) 40 mg AM PO 06/12/25 09:00 06/12/25 06:54 DC Lisinopril (Prinivil 40mg) 40 mg DAILY PO 06/15/25 09:00 07/15/25 08:59 06/15/25 08:44 40 MG Metformin HCl (glucoPHAGE) 500 mg BID PO 06/12/25 09:00 06/12/25 00:27 DC Metoprolol Tartrate (loprESSOR) 50 mg BID PO 06/14/25 21:00 06/15/25 11:57 DC 06/15/25 08:44 50 MG Metoprolol Tartrate (loprESSOR) 100 mg BID PO 06/15/25 21:00 07/15/25 20:59 06/16/25 21:43 100 MG Potassium Chloride (K-Dur/Klor-Con 20meq) 20 meq [id number] PO 06/15/25 06:30 06/15/25 14:00 DC 06/15/25 06:46 20 MEQ Sodium Chloride 250 ml @ 0 mls/hr AD IV 06/12/25 15:30 07/12/25 15:29 Sodium Chloride 1,000 ml @ 0 mls/hr ONCE IV 06/12/25 15:30 07/12/25 15:29 06/16/25 11:45 1,000 MLS/HR LABORATORY: [ ] Hematology Labs: Test 06/18/25 04:59 06/17/25 04:34 Range/Units White Blood Count 10.5 4.8-10.8 K/uL Red Blood Count 2.99 L 4.00-5.50 MIL/uL Hemoglobin 8.1 L 12.0-16.0 g/dL Hematocrit 26.8 L 36-48 % Mean Corpuscular Volume 89.6 79-99 fL Mean Corpuscular Hemoglobin 27.1 27.0-33.0 pg Mean Corpuscular Hemoglobin Concent 30.2 L 32.0-36.0 g/dL Red Cell Distribution Width 18.0 H 11.0-15.5 % Platelet Count 369 130-400 K/uL Mean Platelet Volume 10.5 7.5-10.5 fL Nucleated Red Blood Cells 0.3 H 0.0-0.19 % Segmented Neutrophils % 62 40-70 % Lymphocytes % (Manual) 26 22-44 % Monocytes % (Manual) 11 H 2-9 % Eosinophils % (Manual) 1 1-6 % Differential Comment MANUAL DIFFERENTIAL White Cell Morphology Comment Platelet Morphology Comment ADEQUATE Red Blood Cell Morphology See comments Chemistry Labs: Test 06/18/25 12:19 06/18/25 04:59 06/17/25 04:34 06/16/25 16:14 Range/Units Whole Blood Glucose 142 #H 70-110 MG/DL Sodium Level 141 136-145 mmol/L Potassium Level 3.6 3.5-5.1 mmol/L Chloride Level 100 L 101-111 mmol/L Carbon Dioxide Level 34 H 21-32 mmol/L Blood Urea Nitrogen 21 H 7-18 mg/dL Creatinine 6.2 H 0.5-1.0 mg/dL Glomerular Filtration Rate Calc 7 >90 mL/min Random Glucose 47 *L 70-105 mg/dL Total Calcium 7.1 L 8.5-10.1 mg/dL Phosphorus Level 3.1 2.5-4.9 mg/dL Total Bilirubin 0.2 0.2-1.0 mg/dL Aspartate Amino Transf (AST/SGOT) 19 10-37 U/L Alanine Aminotransferase (ALT/SGPT) 20 12-78 U/L Alkaline Phosphatase 73 50-136 U/L Total Protein 6.6 6.0-8.3 g/dL Albumin 2.1 L 3.5-5.0 g/dL Magnesium Level 1.90 1.80-2.40 mg/dL Bedside Glucose Comment Notified Nurse Coagulation Labs: Test 06/18/25 04:59 Range/Units Prothrombin Time 11.7 H 9.6-11.6 SEC Prothromb Time International Ratio 1.12 0.85-1.15 Activated Partial Thromboplast Time 29.6 26.3-35.5 [facility] / RADIOLOGY: [place] [address] IMAGING REPORT Signed PATIENT: JUAN R ROGERS MR#: [id number] : 1960 SEX: F AGE: 64 LOCATION: [facility] ORDER 1509 STATUS: ADM IN REPORT#: [id number] SERVICE 1735 REASON: FIRST TIME DIALYSIS PT ORDERING PHYSICIAN: TALIA ESPANA MD PROCEDURE: CXR1VW - CHEST 1VW EXAM: XR Chest, 1 View. CLINICAL HISTORY: 64 year old female with first time on dialysis. COMPARISON: XR Chest 06/11/25. FINDINGS: LUNGS: The lungs are not clear. There are consolidations in the lower lobes, suggesting pneumonia. PLEURAL SPACES: There are small bilateral pleural effusions. HEART: The heart size is normal. The right internal jugular central line tip is in the SVC. BONES: No acute osseous abnormality. IMPRESSION: 1. Small bilateral pleural effusions and lower lobe consolidations, suggesting pneumonia. Correlate clinically. Similar to prior XR Chest 06/11/25. 2. Right internal jugular central line tip in the SVC. /[place] DICTATED BY: IONA PUENTES MD DATE: 06/12/252052 ELECTRONICALLY SIGNED BY: IONA PUENTES MD DATE: 06/12/252052 PATIENT: JUAN R ROGERS MR#: [id number] : 1960 SEX: F AGE: 64 LOCATION: [facility] ORDER 1 STATUS: ADM IN REPORT#: [id number] SERVICE 9 REASON: av access ORDERING PHYSICIAN: TALIA ESPANA MD PROCEDURE: VEIN M UNI - US VEIN MAPPING UNI/LTD EXAM: US examination, one body part CLINICAL HISTORY: av access TECHNIQUE: Real-time ultrasound examination performed with image documentation. COMPARISON: None provided. FINDINGS: Left Upper Extremity Veins Cephalic Vein * [place]: Depth 9 mm, Diameter 2 mm * Upper Arm: Depth 6 mm, Diameter 2 mm * Mid Arm: Depth 7 mm, Diameter 2 mm * Lower Arm: Depth 7 mm, Diameter 2 mm * Antecubital Fossa: Depth 7 mm, Diameter 3 mm * Upper Forearm: Depth 3 mm, Diameter 2 mm * Mid Forearm: Depth 3 mm, Diameter 2 mm * Wrist: Depth 2 mm, Diameter 1 mm Basilic Vein * Upper Arm: Depth 12 mm, Diameter 4 mm * Lower Arm: Depth 13 mm, Diameter 2 mm * Antecubital Fossa: Depth 4 mm, Diameter 3 mm IMPRESSION: 1. Venous mapping, as above. 2. Left upper extremity venous system patent with normal flow. /[place] DICTATED BY: HARVINDER TORRES MD DATE: 06/15/25747 ELECTRONICALLY SIGNED BY: HARVINDER TORRES MD DATE: 06/15/25747 PATIENT: JUAN R ROGERS MR#: [id number] : 1960 SEX: F AGE: 64 LOCATION: ED ORDER 9 STATUS: REG ER REPORT#: [id number] SERVICE 0838 REASON: dizziness ORDERING PHYSICIAN: ESTHELA AMADOR DO PROCEDURE: CXR1VW - CHEST 1VW EXAM: CR Chest, 1 View. CLINICAL HISTORY: dizziness COMPARISON: None provided. FINDINGS: There is multifocal airspace disease within the bilateral lower lobes, and small bilateral effusions. There is no pneumothorax. Heart size is stable. Mild central pulmonary vascular congestion. IMPRESSION: 1. Multifocal airspace disease in bilateral lower lobes, concerning for pneumonia, with small bilateral pleural effusions. 2. Mild central pulmonary vascular congestion. /[place] DICTATED BY: CASS AGUILAR Jr., MD DATE: 06/11/251217 ELECTRONICALLY SIGNED BY: CASS AGUILAR Jr., MD DATE: 06/11/251217 ASSESSMENT: End stage renal disease Anemia Community-acquired pneumonia Hypertension Diabetes mellitus type PLAN: Labs, diagnostic, radiologic exams reviewed and interpreted by myself and supervising physician. We have reviewed external records in detail Continue with dialysis schedule Wednesday Case management coordinating outpatient dialysis chair. Require close monitoring of renal function and electrolytes Order CBC, CMP, and electrolytes in am Renal diabetic diet BiPAP as necessary, for respiratory distress Monitor blood pressure adjust medication doses as needed Avoid hypotensive episodes May use Dilaudid 0.5 mg IV every 6 hours as needed for severe pain Monitor blood sugars Strict intake, output, and daily weight should be monitored Please renally adjust medications Avoid nephrotoxic and nonsteroidal drugs Avoid contrast if possible Will continue to monitor renal function, anemia, electrolytes Treatment plan discussed with patient Questions were answered We have discussed with the other team physicians in detail about the care plan We will continue to monitor the patient closely ATTESTATION BY PHYSICIAN I have seen and examined the patient. I reviewed the documentation, medical decision making, and treatment plan as noted by the mid-level provider above. I agree with the findings and plan of care. ROSAS PIEDRA MD, [facility] Jun 18, 2025 13:11
--- NOTE | 2025-06-18 13:20 | NUR ---
RECEIVED PATIENT FROM PACU PATIENT HAD LEFT AV FISTULA DONE. PATIENT ORIENTATED TO ROOM. NO O2 WAS NEEDED AND VITALS WERE STARTED. BED SET TO LOWEST POSITION. ANSWERED ANY QUESTIONS OR CONCERNS PATIENT HAD. CALL LIGHT WITHIN REACH OF PATIENT.
--- NOTE | 2025-06-18 16:28 | PN ---
PROGRESS NOTE PROGRESS NOTE DATE OF PROGRESS NOTE: 06/18/25 SUBJECTIVE: Patient with persistent hypoglycemia since dialysis VITAL SIGNS Vital Signs Date Time Temp Pulse Resp B/P (MAP) Pulse Ox O2 Delivery O2 Flow Rate FiO2 06/18/25 13:20 97.5 77 17 137/74 98 Room Air 21 06/18/25 13:15 2.0 PHYSICAL EXAM: Physical Exam Physical Exam Physical Exam Dictation VITAL SIGNS: Reviewed. GENERAL APPEARANCE: Alert, oriented x3, no acute distress. HEAD AND FACE: Non-traumatic. EYES: PERRL, pink conjunctivas, eyelid no trauma, anterior chamber clear. EARS: Pinnas intact and no signs of trauma or erythema. Ear canals clear and no discharge. TMs no erythema. NOSE: No discharge, no bleeding. OROPHARYNX: Mouth normal, teeth no caries, tongue pink. Pharynx clear, no erythema. Tonsils no exudates, no abscesses noted. Mucous membrane moist. NECK: Supple, non-tender, no thyromegaly, no masses, no JVD, no bruits. BREAST: Deferred. CHEST: No tenderness, no crepitus, no paradoxical movement, no retractions. LUNGS: Clear, well-ventilated, symmetric, no rales, no wheezing, no rhonchi, no stridor, good breath sounds bilaterally. HEART: Regular rate, regular rhythm, no murmur, no gallops. VASCULAR: No peripheral edema. ABDOMEN: Soft, positive bowel sounds, nondistended, no guarding, nontender, no rebound, no masses no hepatomegaly, no splenomegaly, no Parson's sign, no hernias. RECTAL: Deferred. GENITAL: Deferred. NEUROLOGICAL: Normal speech, gross motor function intact, gross sensory function intact. MUSCULOSKELETAL: Neck nontender, full range of motion, back nontender, full range of motion. EXTREMITIES: Nontender, full range of motion. SKIN: Color pink, dry, no turgor, no rash, no lacerations, no abrasions, no contusions. LYMPHATICS: Deferred. LABORATORY: Laboratory Result(s) Test 06/17/25 19:43 06/18/25 04:41 06/18/25 04:59 06/18/25 05:25 Whole Blood Glucose 224 MG/DL (70-110) 51 MG/DL (70-110) 105 MG/DL (70-110) White Blood Count 10.5 K/uL (4.8-10.8) Red Blood Count 2.99 MIL/uL (4.00-5.50) Hemoglobin 8.1 g/dL (12.0-16.0) Hematocrit 26.8 % (36-48) Mean Corpuscular Volume 89.6 fL (79-99) Mean Corpuscular Hemoglobin 27.1 pg (27.0-33.0) Mean Corpuscular Hemoglobin Concent 30.2 g/dL (32.0-36.0) Red Cell Distribution Width 18.0 % (11.0-15.5) Platelet Count 369 K/uL (130-400) Mean Platelet Volume 10.5 fL (7.5-10.5) Nucleated Red Blood Cells 0.3 % (0.0-0.19) Prothrombin Time 11.7 SEC (9.6-11.6) Prothromb Time International Ratio 1.12 (0.85-1.15) Activated Partial Thromboplast Time 29.6 SEC (26.3-35.5) Sodium Level 141 mmol/L (136-145) Potassium Level 3.6 mmol/L (3.5-5.1) Chloride Level 100 mmol/L (101-111) Carbon Dioxide Level 34 mmol/L (21-32) Blood Urea Nitrogen 21 mg/dL (7-18) Creatinine 6.2 mg/dL (0.5-1.0) Glomerular Filtration Rate Calc 7 mL/min (>90) Random Glucose 47 mg/dL (70-105) Total Calcium 7.1 mg/dL (8.5-10.1) Phosphorus Level 3.1 mg/dL (2.5-4.9) Total Bilirubin 0.2 mg/dL (0.2-1.0) Aspartate Amino Transf (AST/SGOT) 19 U/L (10-37) Alanine Aminotransferase (ALT/SGPT) 20 U/L (12-78) Alkaline Phosphatase 73 U/L (50-136) Total Protein 6.6 g/dL (6.0-8.3) Albumin 2.1 g/dL (3.5-5.0) Test 06/18/25 07:42 06/18/25 08:12 06/18/25 10:41 06/18/25 12:19 Whole Blood Glucose 41 MG/DL (70-110) 234 MG/DL (70-110) 63 MG/DL (70-110) 142 MG/DL (70-110) INPATIENT MEDS: Current Medications Medications Dose Ordered Sig/Amy Start Time Stop Time Status Last Admin Insulin Human Lispro INSULIN SLIDING SCAL... ACHS 06/11/25 11:30 07/11/25 11:29 06/16/25 21:51 Estradiol 0.5 mg AM 06/12/25 09:00 07/12/25 08:59 06/17/25 09:25 Atorvastatin Calcium 40 mg HS 06/12/25 21:00 07/12/25 20:59 06/17/25 21:25 Ergocalciferol 50,000 unit QWEEK 06/18/25 09:00 07/18/25 08:59 Epoetin Nate-epbx 10,000 unit QTUTHSA[DIALYSIS] 06/12/25 16:00 07/12/25 15:59 06/16/25 15:30 Sodium Chloride 250 ml @ 0 mls/hr AD 06/12/25 15:30 07/12/25 15:29 Sodium Chloride 1,000 ml @ 0 mls/hr ONCE 06/12/25 15:30 07/12/25 15:29 06/16/25 11:45 Dextrose 50 ml AD PRN 06/13/25 23:30 07/13/25 23:29 06/18/25 11:11 Glucagon 1 mg AD PRN 06/13/25 23:30 07/13/25 23:29 Heparin Sodium (Porcine) 10,000 unit AD 06/14/25 10:00 07/14/25 09:59 06/16/25 11:45 Lisinopril 40 mg DAILY 06/15/25 09:00 07/15/25 08:59 06/17/25 09:25 Metoprolol Tartrate 100 mg BID 06/15/25 21:00 07/15/25 20:59 06/17/25 21:25 Insulin Glargine 50 units HS 06/18/25 21:00 07/18/25 20:59 PROBLEM LIST: (1) Acute renal failure ICD Code: N17.9 - Acute kidney failure, unspecified (2) Normocytic anemia ICD Code: D64.9 - Anemia, unspecified PLAN: Continue hemodialysis per Nephrology Decrease the dose of insulin due to hypoglycemia sliding scale for diabetes KANIKA SUNG MD Jun 18, 2025 16:27
--- NOTE | 2025-06-18 20:10 | NUR ---
RBS 68 PATIENT GIVEN D50 IVP, ASYMPTOMATIC , PATIENT RECHECK AT 2039 RBS 65, PATIENT EATING FRUITS FROM HOME, RECHECKED AT 2214 rbs 166
--- NOTE | 2025-06-18 23:28 | OP ---
DATE OF PROCEDURE: 06/18/2025 PREOPERATIVE DIAGNOSIS: End-stage renal disease. POSTOPERATIVE DIAGNOSIS: End-stage renal disease. PROCEDURE PERFORMED: Left radiocephalic ([place]) AV fistula. OPERATING SURGEON: Joshua Garcia MD PLANT QUALITY MANAGER: Meghan Alcantara. ANESTHESIOLOGIST: DOT. TYPE OF ANESTHESIA: General endotracheal anesthesia. BRIEF HISTORY: The patient is a 64-year-old female with end-stage renal disease requiring hemodialysis. She presents now for placement of long-term hemodialysis access. FINDINGS: The patient had a 3.5-4 mm cephalic vein at the left wrist. The radial artery was 2.5 mm. DESCRIPTION OF PROCEDURE: The patient was brought to the operating room and placed on the operating table in supine position. She was given general endotracheal anesthesia. After placement of lines and catheters, the left arm was prepped and draped in the usual sterile fashion. A longitudinal incision was made on the left lateral wrist and the left cephalic vein and radial artery were dissected out and surrounded with vascular loops. The patient was given 5000 units of IV heparin. The cephalic vein was doubly clipped distally and divided. It was then insufflated to 3.5-4 mm in diameter. The radial artery was then clamped proximal and distal to the target site, which was opened with 11-blade scalpel and Patel scissors. The distal end of the cephalic vein was then anastomosed to the side of the radial artery using a running 7-0 Prolene suture. The clamps were released and there was good flow into the cephalic vein. The patient was given 50 mg of protamine. The wound was injected with a total of 5 mL of a 50:50 mixture of 1% lidocaine and 0.25% Marcaine. The wound was then closed with a running layer of subcutaneous Vicryl suture. The skin was closed using a running intracuticular Monocryl stitch. The wounds were cleaned and dried, covered with bandages, and the patient was undraped, extubated and taken to the recovery room in stable condition. TID: [id number] RECEIPT: [id number] cc: NATHANAEL SCHAEFER MD(User), Meghan Alcantara
[2025-06-19] VITALS (18 sets, daily range): BP systolic 144–173; BP diastolic 71–91; PULSE 70–93; RESP 12–19; TEMP 97.2–98.5; O2SAT 95
--- NOTE | 2025-06-19 04:40 | NUR ---
RBS 66, PATIENT ASYMPTOMATIC, ORANGE JUICE GIVEN ,WILL CONTINUE TO MONITOR Addendum: 06/19/25 at 0600 by JACE SAINZ RN RN RECHECKED 0530 BLOOD SUGAR 85
[2025-06-19 04:54] LABS: NUCLEATED RED BLOOD CELLS 0.3 % (0.0-0.19); PLATELET COUNT (AUTO) 305.0 K/uL (130-400); RED BLOOD CELL COUNT(AUTO) 2.64 MIL/uL (4.00-5.50); RED CELL DISTRIBUTION WIDTH 18.1 % (11.0-15.5); WHITE BLOOD COUNT (AUTO) 7.6 K/uL (4.8-10.8)
[2025-06-19 05:02] LABS: CREATININE 7.4 mg/dL (0.5-1.0); GLOMERULAR FILTR. RATE CALC 6.0 mL/min (>90); GLUCOSE,RANDOM 64.0 mg/dL (70-105); PHOSPHORUS 4.2 mg/dL (2.5-4.9); SODIUM SERUM 140.0 mmol/L (136-145); UREA NITROGEN, BLOOD 26.0 mg/dL (7-18)
--- NOTE | 2025-06-19 10:47 | PN ---
PROGRESS NOTE PROGRESS NOTE DATE OF PROGRESS NOTE: 06/19/25 SUBJECTIVE: No new complaints VITAL SIGNS Vital Signs Date Time Temp Pulse Resp B/P (MAP) Pulse Ox O2 Delivery O2 Flow Rate FiO2 06/19/25 10:25 98.1 75 16 173/86 Room Air 06/19/25 07:26 95 06/18/25 19:20 0 21 PHYSICAL EXAM: Physical Exam Physical Exam Physical Exam Dictation VITAL SIGNS: Reviewed. GENERAL APPEARANCE: Alert, oriented x3, no acute distress. HEAD AND FACE: Non-traumatic. EYES: PERRL, pink conjunctivas, eyelid no trauma, anterior chamber clear. EARS: Pinnas intact and no signs of trauma or erythema. Ear canals clear and no discharge. TMs no erythema. NOSE: No discharge, no bleeding. OROPHARYNX: Mouth normal, teeth no caries, tongue pink. Pharynx clear, no erythema. Tonsils no exudates, no abscesses noted. Mucous membrane moist. NECK: Supple, non-tender, no thyromegaly, no masses, no JVD, no bruits. BREAST: Deferred. CHEST: No tenderness, no crepitus, no paradoxical movement, no retractions. LUNGS: Clear, well-ventilated, symmetric, no rales, no wheezing, no rhonchi, no stridor, good breath sounds bilaterally. HEART: Regular rate, regular rhythm, no murmur, no gallops. VASCULAR: No peripheral edema. ABDOMEN: Soft, positive bowel sounds, nondistended, no guarding, nontender, no rebound, no masses no hepatomegaly, no splenomegaly, no Parson's sign, no hernias. RECTAL: Deferred. GENITAL: Deferred. NEUROLOGICAL: Normal speech, gross motor function intact, gross sensory function intact. MUSCULOSKELETAL: Neck nontender, full range of motion, back nontender, full range of motion. EXTREMITIES: Nontender, full range of motion. SKIN: Color pink, dry, no turgor, no rash, no lacerations, no abrasions, no contusions. LYMPHATICS: Deferred. LABORATORY: Laboratory Result(s) Test 06/18/25 12:19 06/18/25 19:58 06/18/25 20:29 06/18/25 22:29 Whole Blood Glucose 142 MG/DL (70-110) 66 MG/DL (70-110) 65 MG/DL (70-110) 166 MG/DL (70-110) Test 06/19/25 04:24 06/19/25 05:34 White Blood Count 7.6 K/uL (4.8-10.8) Red Blood Count 2.64 MIL/uL (4.00-5.50) Hemoglobin 7.1 g/dL (12.0-16.0) Hematocrit 23.6 % (36-48) Mean Corpuscular Volume 89.4 fL (79-99) Mean Corpuscular Hemoglobin 26.9 pg (27.0-33.0) Mean Corpuscular Hemoglobin Concent 30.1 g/dL (32.0-36.0) Red Cell Distribution Width 18.1 % (11.0-15.5) Platelet Count 305 K/uL (130-400) Mean Platelet Volume 10.9 fL (7.5-10.5) Nucleated Red Blood Cells 0.3 % (0.0-0.19) Sodium Level 140 mmol/L (136-145) Potassium Level 3.9 mmol/L (3.5-5.1) Chloride Level 102 mmol/L (101-111) Carbon Dioxide Level 29 mmol/L (21-32) Blood Urea Nitrogen 26 mg/dL (7-18) Creatinine 7.4 mg/dL (0.5-1.0) Glomerular Filtration Rate Calc 6 mL/min (>90) Random Glucose 64 mg/dL (70-105) Total Calcium 6.5 mg/dL (8.5-10.1) Phosphorus Level 4.2 mg/dL (2.5-4.9) Whole Blood Glucose 85 MG/DL (70-110) INPATIENT MEDS: Current Medications Medications Dose Ordered Sig/Amy Start Time Stop Time Status Last Admin Insulin Human Lispro INSULIN SLIDING SCAL... ACHS 06/11/25 11:30 07/11/25 11:29 06/16/25 21:51 Estradiol 0.5 mg AM 06/12/25 09:00 07/12/25 08:59 06/17/25 09:25 Atorvastatin Calcium 40 mg HS 06/12/25 21:00 07/12/25 20:59 06/18/25 20:40 Ergocalciferol 50,000 unit QWEEK 06/18/25 09:00 07/18/25 08:59 Epoetin Nate-epbx 10,000 unit QTUTHSA[DIALYSIS] 06/12/25 16:00 07/12/25 15:59 06/16/25 15:30 Sodium Chloride 250 ml @ 0 mls/hr AD 06/12/25 15:30 07/12/25 15:29 Sodium Chloride 1,000 ml @ 0 mls/hr ONCE 06/12/25 15:30 07/12/25 15:29 06/19/25 10:12 Dextrose 50 ml AD PRN 06/13/25 23:30 07/13/25 23:29 06/18/25 20:40 Glucagon 1 mg AD PRN 06/13/25 23:30 07/13/25 23:29 Heparin Sodium (Porcine) 10,000 unit AD 06/14/25 10:00 07/14/25 09:59 06/19/25 10:11 Lisinopril 40 mg DAILY 06/15/25 09:00 07/15/25 08:59 06/17/25 09:25 Metoprolol Tartrate 100 mg BID 06/15/25 21:00 07/15/25 20:59 06/18/25 20:40 Insulin Glargine 50 units HS 06/18/25 21:00 07/18/25 20:59 PROBLEM LIST: (1) Acute renal failure ICD Code: N17.9 - Acute kidney failure, unspecified (2) Normocytic anemia ICD Code: D64.9 - Anemia, unspecified PLAN: Continue hemodialysis per Nephrology Decrease the dose of insulin due to hypoglycemia sliding scale for diabetes KANIKA SUNG MD Jun 19, 2025 10:46
--- NOTE | 2025-06-19 12:34 | NUR ---
PATIENT DISCHARGE HOME ID BAND AND IV REMOVED. DISCHARGE INSTRUCTIONS EXPLAINED AND GIVEN TO PATIENT. PATIENT VERBALIZED UNDERSTANDING. BELONGINGS PACKED AND TAKEN BY PATIENT. WHEELED DOWN TO PRIVATE CAR.
--- NOTE | 2025-06-20 23:22 | PN ---
NEPHROLOGY NOTE SUBJECTIVE: The patient has multiple problems including renal failure on dialysis. No fever, chills, or rigors, cough, expectoration or hemoptysis, no other localizing findings. No other associated symptoms. The patient is generally weak. Other systemic review is unchanged. The patient has anemia. PHYSICAL EXAMINATION: GENERAL: Shows pale, no other distress. VITAL SIGNS: Blood pressure is 169/85. HEENT: Head is atraumatic, normocephalic. Pupils are round and reactive to light. Sclerae are anicteric. Conjunctivae not pale. Oral mucosa is not dry. NECK: Supple. Without masses or bruits. Thyroid is palpable. Neck has no bruits. CHEST: Shows equal thoracic percussion, note being resonant in all areas. CARDIAC: Regular rhythm. No rub, no S3, No S4. No parasternal heave. ABDOMEN: With no guarding, tenderness, bowel sounds or free fluid. LABORATORY DATA: Labs have been reviewed and labs have shown hemoglobin is quite low at 7.1. Chemistries reviewed. PROBLEMS: * Advanced renal failure. * Anemia. * Diabetes. * Hypertension. * Multiple other comorbidities. PLAN: Continue monitoring. Follow up on renal function. Follow up on electrolytes. Intake, output, weight will be monitored. Nonsteroidal drugs will be avoided. Doses of medicine will be adjusted and we will be following up closely. The patient will have a followup and overall status will be monitored. Condition is critical and guarded. The patient was seen several times today. I have discussed with the patient and family in detail. Dialysis outpatient to continue. Fluid restrictions diet. Please avoid nonsteroidals and nephrotoxics. I discussed with other team physician. TID: [id number] RECEIPT: [id number]
== END 2025-06-19 12:27 | disposition home or self-care (01) | DRG 673 ==
LOC: EDH 08:35 → EDHIP 14:49 → 3BH 22:51
PROVIDERS: ADMIT Internal Medicine; ATTEND Internal Medicine
PROC: 5A1D70Z Performance of Urinary Filtration, Intermittent, Less than 6 Hours Per Day (ICD-10-PCS; 2025-06-12)
PROC: 0JH63XZ Insertion of Tunneled Vascular Access Device into Chest Subcutaneous Tissue and Fascia, Percutaneous Approach (ICD-10-PCS; 2025-06-12)
PROC: 02HV33Z Insertion of Infusion Device into Superior Vena Cava, Percutaneous Approach (ICD-10-PCS; 2025-06-12)
PROC: B5181ZA Fluoroscopy of Superior Vena Cava using Low Osmolar Contrast, Guidance (ICD-10-PCS; 2025-06-12)
PROC: 5A1D70Z Performance of Urinary Filtration, Intermittent, Less than 6 Hours Per Day (ICD-10-PCS; 2025-06-13)
PROC: 5A1D70Z Performance of Urinary Filtration, Intermittent, Less than 6 Hours Per Day (ICD-10-PCS; 2025-06-14)
PROC: 5A1D70Z Performance of Urinary Filtration, Intermittent, Less than 6 Hours Per Day (ICD-10-PCS; 2025-06-16)
PROC: 031C0ZF Bypass Left Radial Artery to Lower Arm Vein, Open Approach (ICD-10-PCS; principal; 2025-06-18 11:11)
DX: N17.9 Acute kidney failure, unspecified (principal); J18.9 Pneumonia, unspecified organism; I12.0 Hypertensive chronic kidney disease with stage 5 chronic kidney disease or end stage renal disease; N18.6 End stage renal disease; D64.9 Anemia, unspecified; E11.22 Type 2 diabetes mellitus with diabetic chronic kidney disease; E11.649 Type 2 diabetes mellitus with hypoglycemia without coma; Z99.2 Dependence on renal dialysis
CPT/HCPCS: 36415; 36558; 71045; 77001; 80048; 80053; 80061; 81001; 82040; 82550; 82565; 82728; 82948; 83036; 83540; 83550; 83605; 83735; 84100; 84132; 84145; 84484; 84520; 85014; 85018; 85025; 85027; 85610; 85730; 86701; 86704; 86706; 86803; 86850; 86900; 86901; 87086; 87340; 87390; 90935; 93005; 93971; 96374; 99156; 99157; 99285; A4450; C1750; C1769; G0378; J0690; J0696; J1644; J1756; J2250; J2371; J2405; J2704; J2710; J3010; J3490; J7030; J7050; J7070; P9045; A4216; A4222; A4223; A4600; A4649; A4930; C1713; C1894; J0665; Q5106

== ENCOUNTER → 2025-08-10 | Outpatient (CLI) | payer OTHER ==
[~2025-08-10] MED LIST changes: +AMLO-257 PO; -CETI10TA57 PO; -FAMO20TA8 PO; +INSU3INS3 SQ; -TOUJEO SQ
[2025-08-10 09:03] LABS: IMMATURE GRANULOCYTE ABSOLUTE 0.01 K/uL (0-1); NUCLEATED RED BLOOD CELLS 0.0 % (0.0-0.19); PLATELET COUNT (AUTO) 283 K/uL (130-400); RED BLOOD CELL COUNT(AUTO) 5.19 MIL/uL (4.00-5.50); RED CELL DISTRIBUTION WIDTH 17.0 % (11.0-15.5); WHITE BLOOD COUNT (AUTO) 7.0 K/uL (4.8-10.8)
[2025-08-10 09:24] LABS: ASPARTATE AMINOTRANSFERASE 15.0 U/L (10-37); CREATININE 5.0 mg/dL (0.5-1.0); GLOMERULAR FILTR. RATE CALC 9.0 mL/min (>90); GLUCOSE,RANDOM 154.0 mg/dL (70-105); SODIUM SERUM 136.0 mmol/L (136-145); TOTAL PROTEIN, SERUM 7.9 g/dL (6.0-8.3); UREA NITROGEN, BLOOD 22.0 mg/dL (7-18)
== END | disposition home or self-care (01) ==
LOC: LAB 08:21
PROVIDERS: ATTEND Internal Medicine
DX: E11.43 Type 2 diabetes mellitus with diabetic autonomic (poly)neuropathy (principal); E11.22 Type 2 diabetes mellitus with diabetic chronic kidney disease; N18.6 End stage renal disease; K76.0 Fatty (change of) liver, not elsewhere classified; R53.83 Other fatigue; Z09 Encounter for follow-up examination after completed treatment for conditions other than malignant neoplasm
CPT/HCPCS: 36415; 80053; 82607; 83036; 84443; 85025